=== PATIENT | female | born 1990 | race Caucasian/White ===

== ENCOUNTER 2017-04-19 17:19 | Emergency (ER) | payer MEDICARE, MEDICAID ==
[~2017-04-19] VITALS: Ht 157.5 cm; Wt 54.0 kg
[~2017-04-19 17:19] MED LIST: ALBU8HFA PO; PRED20TA PO
[2017-04-19 17:46] VITALS: BP 140/100
[2017-04-19] MEDS ORDERED: TRAM50TA2 PO (17:58)
[2017-04-19] MEDS ORDERED: CLIN150C2 PO (17:58)
== END 2017-04-19 18:07 | disposition home or self-care (01) ==
LOC: ER 17:19
DX: K08.89 Other specified disorders of teeth and supporting structures (principal); Z88.0 Allergy status to penicillin; Z88.2 Allergy status to sulfonamides
CPT/HCPCS: 99283

== ENCOUNTER 2017-05-09 09:04 | Emergency (ER) | payer MEDICARE, MEDICAID ==
[~2017-05-09] VITALS: Ht 160 cm; Wt 47.0 kg
[~2017-05-09 09:04] MED LIST changes: -ALBU8HFA PO; -PRED20TA PO; +TRAM50TA2 PO
[2017-05-09 09:26] LABS: URINE HCG NEGATIVE (NEG)
[2017-05-09 09:35] LABS: CLARITY,URINE CLOUDY (Clear); COLOR,URINE YELLOW (Yellow); GLUCOSE, URINE >=1000 mg/dl (Neg); KETONES,URINE NEGATIVE (Neg); LEUKOCYTE ESTERASE ,URINE NEGATIVE (Neg); NITRITES, URINE NEGATIVE (Neg); OCCULT BLOOD,URINE MODERATE (Neg); PH,URINE 5.5 (4.8-8.0); PROTEIN,URINE NEGATIVE (Neg); UROBILINOGEN,URINE 0.2 E.U/dL (0.2-1.0)
[2017-05-09 09:37] LABS: UA COLLECTION TYPE CLN CATCH MIDSTREAM
[2017-05-09 09:56] LABS: BACTERIA,URINE NONE SEEN /HPF (Neg); RBC,URINE TNTC /HPF (0-2); SQUAMOUS EPITHELIAL CELL,UR FEW /LPF (FEW); WBC,URINE 0-4 /HPF (0-4)
[2017-05-09] MEDS ORDERED: HYDROcodone/acetaminophen 5mg/325mg tablet PO ONE (10:00)
[2017-05-09] MEDS ORDERED: ketorolac trometh inj. 60 MG/2 ML VIAL IM ONE (10:00)
[2017-05-09] MEDS ORDERED: HYDR-569 PO (10:48)
[2017-05-09] MEDS ORDERED: FLO0.4C PO (10:48)
[2017-05-09] MEDS ORDERED: NAPR-56 PO (10:48)
[2017-05-09] MEDS ORDERED: ONDA4TAB9 SL (10:48)
[2017-05-09] MEDS ORDERED: tamsulosin 0.4mg capsule PO SCH (21:00)
== END 2017-05-09 11:53 | disposition home or self-care (01) ==
LOC: ER 09:04
DX: N23 Unspecified renal colic (principal); R30.0 Dysuria; R31.9 Hematuria, unspecified; Z88.0 Allergy status to penicillin; Z88.2 Allergy status to sulfonamides; Z79.899 Other long term (current) drug therapy
CPT/HCPCS: 74176; 81001; 81025; 96372; 99285; J1885

== ENCOUNTER 2017-05-23 14:00 | Emergency (ER) | payer MEDICARE, MEDICAID ==
[~2017-05-23] VITALS: Ht 160 cm; Wt 54.0 kg
[~2017-05-23 14:00] MED LIST changes: +FLO0.4C PO; +HYDR-569 PO; +NAPR-56 PO; -TRAM50TA2 PO
[2017-05-23 14:25] LABS: CLARITY,URINE CLOUDY (Clear); COLOR,URINE YELLOW (Yellow); GLUCOSE, URINE >=1000 mg/dl (Neg); KETONES,URINE NEGATIVE (Neg); LEUKOCYTE ESTERASE ,URINE NEGATIVE (Neg); NITRITES, URINE NEGATIVE (Neg); OCCULT BLOOD,URINE TRACE-INTACT (Neg); PH,URINE 8.5 (4.8-8.0); PROTEIN,URINE 30 mg/dl (Neg)
[2017-05-23 14:26] LABS: UA COLLECTION TYPE CLN CATCH MIDSTREAM
[2017-05-23 14:33] LABS: URINE HCG NEGATIVE (NEG)
[2017-05-23 14:49] LABS: BACTERIA,URINE 1+ /HPF (Neg); HYALINE CASTS 0-3 /LPF (NEGATIVE); SQUAMOUS EPITHELIAL CELL,UR MANY /LPF (FEW)
[2017-05-23 14:50] LABS: RBC,URINE 0-2 /HPF (0-2)
[2017-05-23 15:44] VITALS: BP 145/80
== END 2017-05-23 15:45 | disposition home or self-care (01) ==
LOC: ER 14:00
DX: R10.31 Right lower quadrant pain (principal); Z88.0 Allergy status to penicillin; Z88.2 Allergy status to sulfonamides; Z88.8 Allergy status to other drugs, medicaments and biological substances; Z79.899 Other long term (current) drug therapy
CPT/HCPCS: 76856; 81001; 81025; 99285

== ENCOUNTER 2017-08-30 21:28 | Emergency (ER) | payer MEDICARE, MEDICAID ==
[~2017-08-30] VITALS: Ht 157.5 cm; Wt 57.2 kg
[~2017-08-30 21:28] MED LIST changes: -FLO0.4C PO; +METH500T PO; -NAPR-56 PO
[2017-08-30 22:54] LABS: BASOPHILS % (AUTO) 0.3 % (0-1); EOSINOPHILS # (AUTO) 0.1 X10'3 (0-0.9); EOSINOPHILS % (AUTO) 1.2 % (0-6); HEMATOCRIT 36.9 % (35.0-45.0); HEMOGLOBIN 12.7 g/dl (12.0-16.0); LYMPHOCYTES # (AUTO) 2.1 X10'3 (1.1-4.8); LYMPHOCYTES % (AUTO) 28.5 % (21-51); MEAN CORPUSCULAR HEMOGLOBIN 30.3 PG (27.0-31.0); MEAN CORPUSCULAR HGB CONC 34.5 % (33.0-36.5); MEAN CORPUSCULAR VOLUME 87.8 FL (78-98); MONOCYTES # (AUTO) 0.3 X10'3 (0-0.9); MONOCYTES % (AUTO) 4.4 % (2-12); NEUTROPHILS # (AUTO) 4.9 X10'3 (1.8-7.7); NEUTROPHILS % (AUTO) 65.6 % (42-75); PLATELET COUNT 366 X10'3 (140-440); RED CELL DISTRIBUTION WIDTH 13.9 % (11.5-14.5); WHITE BLOOD COUNT 7.4 X10'3 (4.5-11.0)
[2017-08-30 23:04] LABS: URINE HCG NEGATIVE (NEG)
[2017-08-30 23:04] LABS: PROTHROMBIN TIME 9.9 SECONDS (9.0-12.0)
[2017-08-30 23:06] LABS: CLARITY,URINE CLEAR (Clear); COLOR,URINE STRAW (Yellow); GLUCOSE, URINE >=1000 mg/dl (Neg); KETONES,URINE NEGATIVE (Neg); LEUKOCYTE ESTERASE ,URINE NEGATIVE (Neg); NITRITES, URINE NEGATIVE (Neg); OCCULT BLOOD,URINE MODERATE (Neg); PH,URINE 6.5 (4.8-8.0); PROTEIN,URINE NEGATIVE (Neg); UROBILINOGEN,URINE 0.2 E.U/dL (0.2-1.0)
[2017-08-30 23:07] LABS: UA COLLECTION TYPE CLN CATCH MIDSTREAM
[2017-08-30 23:09] LABS: ALANINE AMINOTRANSFERASE 45 U/L (12-78); ALBUMIN 3.6 G/DL (3.4-5.0); ALBUMIN/GLOBULIN RATIO 0.8 (1.1-1.5); ALKALINE PHOSPHATASE 101 IU/L (46-116); ANION GAP 11 (8-16); ASPARTATE AMINO TRANSFERASE 162 U/L (10-37); BILIRUBIN,TOTAL 0.3 MG/DL (0.1-1.0); BLOOD UREA NITROGEN 13 MG/DL (7-18); BUN/CREATININE RATIO 11.1 (6.6-38.0); CALCIUM 8.8 MG/DL (8.5-10.1); CHLORIDE 100 MMOL/L (99-107); CREATININE 1.17 MG/DL (0.40-0.90); GLUCOSE 440 MG/DL (70-104); POTASSIUM 3.5 MMOL/L (3.5-5.1); SODIUM 136 MMOL/L (135-145); TOTAL CARBON DIOXIDE 25.3 MMOL/L (24-32); eGFR 55 ML/MIN
[2017-08-30 23:16] LABS: BACTERIA,URINE FEW /HPF (Neg); SQUAMOUS EPITHELIAL CELL,UR FEW /LPF (FEW); WBC,URINE NONE SEEN /HPF (0-4)
[2017-08-31] MEDS ORDERED: famotidine/PF 10 mg/ml inj IV ONE (00:35)
[2017-08-31] MEDS ORDERED: ondansetron/PF 4mg/2ml inj IV ONE (00:35)
[2017-08-31] MEDS ORDERED: morphine 4 MG/ML inj SYRINge IV ONE ×2 (00:35→02:05)
[2017-08-31] MEDS ORDERED: normal saline 1000ML IV soln IVB ONE ×2 (00:35)
[2017-08-31] MEDS ORDERED: proCHLORperazine 10 MG/2 ml inj IV ONE (02:05)
[2017-08-31 02:27] VITALS: BP 131/91
[2017-08-31] MEDS ORDERED: HYDR-3965 PO (03:04)
[2017-08-31] MEDS ORDERED: ONDA8TAB9 PO (03:04)
[2017-08-31] MEDS ORDERED: pantoprazole 40mg Tablet.DR PO ONE (03:20)
== END 2017-08-31 03:30 | disposition home or self-care (01) ==
LOC: ER 21:28
DX: R10.11 Right upper quadrant pain (principal); R11.2 Nausea with vomiting, unspecified; E11.42 Type 2 diabetes mellitus with diabetic polyneuropathy; Z98.890 Other specified postprocedural states; Z88.0 Allergy status to penicillin; Z88.2 Allergy status to sulfonamides; Z88.1 Allergy status to other antibiotic agents; Z88.8 Allergy status to other drugs, medicaments and biological substances; Z79.899 Other long term (current) drug therapy
CPT/HCPCS: 36415; 71046; 80053; 81001; 81025; 82948; 85025; 85610; 96361; 96374; 96375; 96376; 99285; J0780; J2270; J2405; J3490; J7030

== ENCOUNTER 2017-09-30 13:05 | Emergency (ER) | payer MEDICARE, MEDICAID ==
[~2017-09-30] VITALS: Ht 160 cm; Wt 56.8 kg
[~2017-09-30 13:05] MED LIST changes: +HYDR-3965 PO; +ONDA4TAB9 PO; +ONDA8TAB9 PO
[2017-09-30] MEDS ORDERED: ondansetron 4mg rapidly disintigrating tab PO ONE (14:30)
[2017-09-30] MEDS ORDERED: normal saline 1000ML IV soln IVB ONE (14:30)
[2017-09-30 14:55] LABS: BASOPHILS % (AUTO) 0.2 % (0-1); EOSINOPHILS # (AUTO) 0.2 X10'3 (0-0.9); EOSINOPHILS % (AUTO) 1.9 % (0-6); HEMATOCRIT 35.1 % (35.0-45.0); LYMPHOCYTES # (AUTO) 0.9 X10'3 (1.1-4.8); LYMPHOCYTES % (AUTO) 9.1 % (21-51); MEAN CORPUSCULAR HGB CONC 34.3 % (33.0-36.5); MEAN CORPUSCULAR VOLUME 87.6 FL (78-98); MEAN PLATELET VOLUME 6.9 FL (7.4-10.4); MONOCYTES # (AUTO) 0.3 X10'3 (0-0.9); MONOCYTES % (AUTO) 2.7 % (2-12); NEUTROPHILS # (AUTO) 8.5 X10'3 (1.8-7.7); NEUTROPHILS % (AUTO) 86.1 % (42-75); PLATELET COUNT 359 X10'3 (140-440); RED CELL DISTRIBUTION WIDTH 14.7 % (11.5-14.5); WHITE BLOOD COUNT 9.9 X10'3 (4.5-11.0)
[2017-09-30] MEDS ORDERED: proCHLORperazine 10 MG/2 ml inj IV ONE (15:10)
[2017-09-30] MEDS ORDERED: dexamethasone 4mg/ml inj IV ONE (15:10)
[2017-09-30 15:12] LABS: PROTHROMBIN TIME 10.2 SECONDS (9.0-12.0)
[2017-09-30 15:19] LABS: HCG SERUM QL NEGATIVE
[2017-09-30 15:34] LABS: ALANINE AMINOTRANSFERASE 22 U/L (12-78); ALBUMIN 3.7 G/DL (3.4-5.0); ALBUMIN/GLOBULIN RATIO 0.8 (1.1-1.5); ALKALINE PHOSPHATASE 95 IU/L (46-116); ANION GAP 8 (8-16); ASPARTATE AMINO TRANSFERASE 18 U/L (10-37); BILIRUBIN,TOTAL 0.5 MG/DL (0.1-1.0); BLOOD UREA NITROGEN 14 MG/DL (7-18); BUN/CREATININE RATIO 11.5 (6.6-38.0); CALCIUM 8.9 MG/DL (8.5-10.1); CHLORIDE 102 MMOL/L (99-107); CREATININE 1.22 MG/DL (0.40-0.90); GLUCOSE 73 MG/DL (70-104); LIPASE 136 U/L (73-393); POTASSIUM 4.1 MMOL/L (3.5-5.1); SODIUM 142 MMOL/L (135-145); TOTAL CARBON DIOXIDE 32.1 MMOL/L (24-32); TOTAL PROTEIN 8.1 G/DL (6.4-8.2); eGFR 52 ML/MIN
[2017-09-30 15:58] VITALS: BP 127/80
== END 2017-09-30 16:43 | disposition home or self-care (01) ==
LOC: ER 13:05
DX: R11.2 Nausea with vomiting, unspecified (principal); E10.9 Type 1 diabetes mellitus without complications; E10.42 Type 1 diabetes mellitus with diabetic polyneuropathy; Z98.890 Other specified postprocedural states; Z88.0 Allergy status to penicillin; Z88.1 Allergy status to other antibiotic agents; Z88.2 Allergy status to sulfonamides; Z88.8 Allergy status to other drugs, medicaments and biological substances; Z79.899 Other long term (current) drug therapy
CPT/HCPCS: 36415; 80053; 82948; 83690; 84703; 85025; 85610; 96361; 96374; 96375; 99285; J0780; J1100; J7030

== ENCOUNTER 2017-10-06 21:47 | Inpatient (IN) | payer MEDICARE, MEDICAID ==
[~2017-10-06] VITALS: Ht 157.5 cm; Wt 59.0 kg
[~2017-10-06 21:47] MED LIST changes: -HYDR-3965 PO
[2017-10-06] MEDS ORDERED: normal saline 1000ML IV soln IVB ONE (22:05)
[2017-10-06] MEDS ORDERED: ondansetron/PF 4mg/2ml inj IV ONE (22:05)
[2017-10-06 22:38] LABS: BASOPHILS % (AUTO) 0.2 % (0-1); EOSINOPHILS # (AUTO) 0.1 X10'3 (0-0.9); EOSINOPHILS % (AUTO) 1.7 % (0-6); HEMOGLOBIN 10.9 g/dl (12.0-16.0); LYMPHOCYTES # (AUTO) 1.9 X10'3 (1.1-4.8); LYMPHOCYTES % (AUTO) 24.9 % (21-51); MEAN CORPUSCULAR HEMOGLOBIN 30.3 PG (27.0-31.0); MEAN CORPUSCULAR HGB CONC 34.1 % (33.0-36.5); MEAN CORPUSCULAR VOLUME 88.9 FL (78-98); MEAN PLATELET VOLUME 7.3 FL (7.4-10.4); MONOCYTES # (AUTO) 0.2 X10'3 (0-0.9); MONOCYTES % (AUTO) 3.1 % (2-12); NEUTROPHILS # (AUTO) 5.4 X10'3 (1.8-7.7); NEUTROPHILS % (AUTO) 70.1 % (42-75); PLATELET COUNT 352 X10'3 (140-440); RED CELL DISTRIBUTION WIDTH 14.5 % (11.5-14.5); WHITE BLOOD COUNT 7.7 X10'3 (4.5-11.0)
[2017-10-06 22:48] LABS: HCG SERUM QL NEGATIVE
[2017-10-06 22:50] LABS: PARTIAL THROMBOPLASTIN TIME 26 SECONDS (22-32); PROTHROMBIN TIME 10.2 SECONDS (9.0-12.0)
[2017-10-06 23:05] LABS: ALANINE AMINOTRANSFERASE 24 U/L (12-78); ALBUMIN 3.3 G/DL (3.4-5.0); ALBUMIN/GLOBULIN RATIO 0.9 (1.1-1.5); ALKALINE PHOSPHATASE 97 IU/L (46-116); ANION GAP 15 (8-16); ASPARTATE AMINO TRANSFERASE 18 U/L (10-37); BILIRUBIN,TOTAL 0.2 MG/DL (0.1-1.0); BLOOD UREA NITROGEN 12 MG/DL (7-18); BUN/CREATININE RATIO 9.8 (6.6-38.0); CALCIUM 8.2 MG/DL (8.5-10.1); CHLORIDE 102 MMOL/L (99-107); CREATINE KINASE 66 U/L (26-192); CREATININE 1.23 MG/DL (0.40-0.90); MAGNESIUM 2.2 MG/DL (1.5-2.4); PHOSPHORUS 3.1 MG/DL (2.3-4.5); POTASSIUM 3.4 MMOL/L (3.5-5.1); SODIUM 139 MMOL/L (135-145); TOTAL CARBON DIOXIDE 22.4 MMOL/L (24-32); TOTAL PROTEIN 7.1 G/DL (6.4-8.2); eGFR 52 ML/MIN
[2017-10-06 23:06] LABS: ACETAMINOPHEN < 2.0 UG/ML (10-30)
[2017-10-06 23:09] LABS: GLUCOSE 457 MG/DL (70-104)
[2017-10-06 23:16] LABS: ABG BASE EXCESS -6.8 mmol/L (-2.0-3.0); ABG HCO3 19.1 mmol/L (22.0-26.0); ABG OXYGEN SATURATION 96.2 % (95-98); ABG PCO2 (T) 38.9 mmHg (32.0-45.0); ABG PH (T) 7.307 (7.350-7.450); ABG PO2 (T) 97.4 mmHg (83-108); ALLEN'S TEST Positive; FCOHb 0.2 % (0.5-1.5); FMetHb 0.2 % (0.3-1.12); FO2Hb 95.8 % (94-100); PATIENT TEMPERATURE 36.4; RESPIRATORY RATE (OBSERVED) 20 b/min; TOTAL HEMOGLOBIN 11.5 G/dl (12.0-16.0)
[2017-10-06] MEDS ORDERED: normal saline 1000ml 1,000 ML IV ONE (23:20)
[2017-10-06] MEDS ORDERED: dextrose 50%-water 50ml dispensing syringe IV PRN (23:25)
[2017-10-06] MEDS ORDERED: haloperidol lactate 5mg/ml inj IM ONE (23:55)
[2017-10-07 00:09] LABS: CLARITY,URINE CLEAR (Clear); COLOR,URINE STRAW (Yellow); GLUCOSE, URINE >=1000 mg/dl (Neg); KETONES,URINE NEGATIVE (Neg); LEUKOCYTE ESTERASE ,URINE NEGATIVE (Neg); NITRITES, URINE NEGATIVE (Neg); OCCULT BLOOD,URINE MODERATE (Neg); PH,URINE 6.5 (4.8-8.0); PROTEIN,URINE NEGATIVE (Neg); UROBILINOGEN,URINE 0.2 E.U/dL (0.2-1.0)
[2017-10-07 00:12] LABS: UA COLLECTION TYPE FOLEY CATH; URINE AMPHETAMINE SCREEN NEGATIVE (Neg); URINE BARBITUATE SCREEN NEGATIVE (Neg); URINE BENZODIAZEPINES SCREEN NEGATIVE (Neg); URINE CANNABINOID SCREEN NEGATIVE (Neg); URINE COCAINE SCREEN NEGATIVE (Neg); URINE METHADONE SCREEN NEGATIVE (Neg); URINE OPIATE SCREEN NEGATIVE (Neg); URINE PHENCYCLIDINE SCREEN NEGATIVE (Neg)
[2017-10-07] MEDS: insulin regular, human 100 UNIT in normal saline 100ml IV soln 99 ML IV SCH ×6 (00:14→04:52)
[2017-10-07 00:20] LABS: BACTERIA,URINE NONE SEEN /HPF (Neg); MUCUS STRANDS NONE SEEN /LPF (Neg); WBC,URINE 0-4 /HPF (0-4)
[2017-10-07 00:21] LABS: SQUAMOUS EPITHELIAL CELL,UR NONE SEEN /LPF (FEW); TRANSITIONAL EPI CELLS,URINE FEW /HPF
[2017-10-07] MEDS ORDERED: magnesium hydroxide 30ml (MOM) UD suspension PO PRN (01:45)
[2017-10-07] MEDS ORDERED: acetaminophen 325mg tablet PO PRN (01:45)
[2017-10-07] MEDS ORDERED: ondansetron/PF 4mg/2ml inj IV PRN (01:45)
[2017-10-07] MEDS ORDERED: mag hydrox/Alum hydrox/simeth 30ml oral suspension PO PRN ×2 (01:45→09:20)
[2017-10-07] MEDS ORDERED: dextrose 50%-water 50ml dispensing syringe IV PRN ×3 (01:55→09:05)
[2017-10-07] MEDS ORDERED: insulin regular, human 100 UNIT in normal saline 100ml IV soln 99 ML IV SCH ×2 (01:55)
[2017-10-07] MEDS: normal saline 1000ml 1,000 ML IV SCH ×2 (02:43→11:10)
[2017-10-07 03:00] VITALS: BP 95/54
[2017-10-07 06:57] VITALS: BP 105/64
[2017-10-07 07:55] LABS: BASOPHILS % (AUTO) 0.5 % (0-1); EOSINOPHILS # (AUTO) 0.1 X10'3 (0-0.9); EOSINOPHILS % (AUTO) 1.5 % (0-6); HEMATOCRIT 28.1 % (35.0-45.0); HEMOGLOBIN 9.3 g/dl (12.0-16.0); LYMPHOCYTES # (AUTO) 1.7 X10'3 (1.1-4.8); LYMPHOCYTES % (AUTO) 33.7 % (21-51); MEAN CORPUSCULAR HEMOGLOBIN 29.8 PG (27.0-31.0); MEAN CORPUSCULAR HGB CONC 33.1 % (33.0-36.5); MEAN PLATELET VOLUME 7.1 FL (7.4-10.4); MONOCYTES # (AUTO) 0.5 X10'3 (0-0.9); NEUTROPHILS # (AUTO) 2.7 X10'3 (1.8-7.7); NEUTROPHILS % (AUTO) 54.3 % (42-75); PLATELET COUNT 297 X10'3 (140-440); RED BLOOD COUNT 3.12 X10'6 (4.20-5.60); RED CELL DISTRIBUTION WIDTH 14.5 % (11.5-14.5)
[2017-10-07] MEDS ORDERED: heparin, porcine 5000 units/ml vial SQ SCH (08:00)
[2017-10-07 08:38] LABS: ALANINE AMINOTRANSFERASE 15 U/L (12-78); ALBUMIN 2.5 G/DL (3.4-5.0); ALBUMIN/GLOBULIN RATIO 0.8 (1.1-1.5); ALKALINE PHOSPHATASE 82 IU/L (46-116); ANION GAP 10 (8-16); ASPARTATE AMINO TRANSFERASE 24 U/L (10-37); BILIRUBIN,TOTAL 0.1 MG/DL (0.1-1.0); BLOOD UREA NITROGEN 10 MG/DL (7-18); BUN/CREATININE RATIO 11.2 (6.6-38.0); CALCIUM 7.4 MG/DL (8.5-10.1); CREATININE 0.89 MG/DL (0.40-0.90); GLUCOSE 86 MG/DL (70-104); MAGNESIUM 1.9 MG/DL (1.5-2.4); POTASSIUM 3.8 MMOL/L (3.5-5.1); SODIUM 148 MMOL/L (135-145); TOTAL CARBON DIOXIDE 22.6 MMOL/L (24-32); TOTAL PROTEIN 5.7 G/DL (6.4-8.2); eGFR 76 ML/MIN
[2017-10-07 08:47] LABS: CHLORIDE 114 MMOL/L (99-107)
[2017-10-07] MEDS ORDERED: HYDROcodone/acetaminophen 5mg/325mg tablet PO PRN (09:05)
[2017-10-07] MEDS ORDERED: morphine 4 MG/ML inj SYRINge IV PRN (09:05)
[2017-10-07] MEDS ORDERED: insulin Lispro (HumaLOG) vial - multi-dose SQ SCH (09:05)
[2017-10-07] MEDS ORDERED: MESSAGE TO PHARMACY PO ONE (09:05)
[2017-10-07] MEDS ORDERED: dextrose ORAL solution 15 GM/59 ML bottle PO PRN ×2 (09:05)
[2017-10-07] MEDS ORDERED: glucagon, human recombinant 1mg kit SUBCUT PRN (09:05)
[2017-10-07] MEDS ORDERED: normal saline 500ml IV soln 500 ML IV ONE (09:15)
[2017-10-07] MEDS ORDERED: pantoprazole 40 MG vial IV SCH (09:20)
[2017-10-07] MEDS ORDERED: cyclobenzaprine 10mg tablet PO PRN (09:20)
[2017-10-07] MEDS ORDERED: thiamine inj. 100 MG in normal saline 100ml IV soln 100 ML IV ONE (09:20)
[2017-10-07] MEDS ORDERED: dicyclomine 10 MG capsule PO PRN (09:20)
[2017-10-07] MEDS ORDERED: loperamide 2mg capsule PO ONE (09:20)
[2017-10-07 09:22] LABS: HEMOGLOBIN A1C 9.7 % (4.5-6.2)
[2017-10-07 11:23] VITALS: BP 146/93
[2017-10-07] MEDS ORDERED: MULT-38 PO (12:36)
[2017-10-07] MEDS ORDERED: insulin glargine (Lantus) pen - multi-dose SQ SCH (21:00)
[2017-10-08] MEDS ORDERED: folic acid inj. 2 MG, thiamine inj. 100 MG, MVI, adult No.4 with vit. K 10 ML in dextro... IV SCH ×4 (08:00)
== END 2017-10-07 13:30 | disposition home or self-care (01) | DRG 917 ==
LOC: ER 21:48 → EDBEDREQTM 10-07 01:16 → ED HOLD 10-07 01:45 → EDBEDREQ 10-07 02:05 → PCU 3S 10-07 03:25
PROVIDERS: ADMIT Internal Medicine; ATTEND Family Medicine
DX: T51.91XA Toxic effect of unspecified alcohol, accidental (unintentional), initial encounter (principal); E10.10 Type 1 diabetes mellitus with ketoacidosis without coma; E10.42 Type 1 diabetes mellitus with diabetic polyneuropathy; F10.129 Alcohol abuse with intoxication, unspecified; E86.0 Dehydration; Y90.8 Blood alcohol level of 240 mg/100 ml or more; R32 Unspecified urinary incontinence; Z88.0 Allergy status to penicillin; Z88.1 Allergy status to other antibiotic agents; Z88.8 Allergy status to other drugs, medicaments and biological substances; Z90.49 Acquired absence of other specified parts of digestive tract; Z79.4 Long term (current) use of insulin; Y92.89 Other specified places as the place of occurrence of the external cause
CPT/HCPCS: 36415; 36600; 71045; 80053; 80305; 80320; 80329; 81001; 81003; 82140; 82550; 82803; 82948; 83036; 83735; 84100; 84443; 84703; 85018; 85025; 85610; 85730; 87070; 93005; 96361; 96365; 96372; 99285; C9113; J1630; J1644; J1815; J2270; J2405; J3411; J3490; J7030; J7060

== ENCOUNTER 2017-10-19 07:34 | Emergency (ER) | payer MEDICARE, MEDICAID ==
[~2017-10-19] VITALS: Ht 157.5 cm; Wt 59.0 kg
[~2017-10-19 07:34] MED LIST changes: +MULT-38 PO
[2017-10-19 07:39] VITALS: BP 146/87
[2017-10-19] MEDS ORDERED: ketorolac trometh inj. 60 MG/2 ML VIAL IM ONE (08:00)
[2017-10-19] MEDS ORDERED: acetaminophen 325mg tablet PO ONE (08:00)
[2017-10-19 08:06] LABS: URINE HCG NEGATIVE (NEG)
[2017-10-19 08:09] LABS: CLARITY,URINE CLOUDY (Clear); COLOR,URINE YELLOW (Yellow); GLUCOSE, URINE NEGATIVE (Neg); KETONES,URINE NEGATIVE (Neg); LEUKOCYTE ESTERASE ,URINE MODERATE (Neg); NITRITES, URINE NEGATIVE (Neg); OCCULT BLOOD,URINE SMALL (Neg); PROTEIN,URINE 100 mg/dl (Neg)
[2017-10-19 08:14] LABS: UA COLLECTION TYPE CLN CATCH MIDSTREAM
[2017-10-19 08:17] LABS: SQUAMOUS EPITHELIAL CELL,UR MANY /LPF (FEW); WBC,URINE TNTC /HPF (0-4)
[2017-10-19 08:18] LABS: BACTERIA,URINE 2+ /HPF (Neg)
[2017-10-19] MEDS ORDERED: ciprofloxacin 250mg tablet PO ONE (08:40)
[2017-10-19] MEDS ORDERED: CIPR-259 PO (08:42)
== END 2017-10-19 09:14 | disposition home or self-care (01) ==
LOC: ER 07:35
DX: N39.0 Urinary tract infection, site not specified (principal); R07.81 Pleurodynia; E11.40 Type 2 diabetes mellitus with diabetic neuropathy, unspecified; Z88.1 Allergy status to other antibiotic agents; Z88.0 Allergy status to penicillin; Z88.2 Allergy status to sulfonamides; Z88.8 Allergy status to other drugs, medicaments and biological substances
CPT/HCPCS: 81001; 81025; 96372; 99284; J1885

== ENCOUNTER 2017-10-21 12:08 | Emergency (ER) | payer MEDICARE, MEDICAID ==
[~2017-10-21] VITALS: Ht 157.5 cm; Wt 57.2 kg
[~2017-10-21 12:08] MED LIST changes: +CIPR-259 PO
[2017-10-21 12:39] LABS: BASOPHILS % (AUTO) 0.3 % (0-1); EOSINOPHILS # (AUTO) 0.1 X10'3 (0-0.9); EOSINOPHILS % (AUTO) 1.5 % (0-6); HEMATOCRIT 36.1 % (35.0-45.0); HEMOGLOBIN 12.1 g/dl (12.0-16.0); LYMPHOCYTES % (AUTO) 14.3 % (21-51); MEAN CORPUSCULAR HEMOGLOBIN 29.3 PG (27.0-31.0); MEAN CORPUSCULAR HGB CONC 33.5 % (33.0-36.5); MEAN CORPUSCULAR VOLUME 87.3 FL (78-98); MEAN PLATELET VOLUME 6.8 FL (7.4-10.4); MONOCYTES # (AUTO) 0.2 X10'3 (0-0.9); MONOCYTES % (AUTO) 2.3 % (2-12); NEUTROPHILS # (AUTO) 5.8 X10'3 (1.8-7.7); NEUTROPHILS % (AUTO) 81.6 % (42-75); PLATELET COUNT 493 X10'3 (140-440); RED BLOOD COUNT 4.14 X10'6 (4.20-5.60); RED CELL DISTRIBUTION WIDTH 13.8 % (11.5-14.5); WHITE BLOOD COUNT 7.1 X10'3 (4.5-11.0)
[2017-10-21] MEDS ORDERED: gentamicin inj 250 MG in normal saline 100ml IV soln 100 ML IV STA (12:41)
[2017-10-21] MEDS ORDERED: diphenhydrAMINE 50 mg/ml inj IV ONE (12:45)
[2017-10-21] MEDS ORDERED: normal saline 1000ML IV soln IVB ONE ×2 (12:45)
[2017-10-21] MEDS ORDERED: LORazepam 2 mg/ml vial IV ONE (12:45)
[2017-10-21] MEDS ORDERED: metoclopramide 5 mg/ml inj IV ONE (12:45)
[2017-10-21 12:47] LABS: PROTHROMBIN TIME 10.4 SECONDS (9.0-12.0)
[2017-10-21 12:53] LABS: ALANINE AMINOTRANSFERASE 28 U/L (12-78); ALBUMIN 3.6 G/DL (3.4-5.0); ALBUMIN/GLOBULIN RATIO 0.8 (1.1-1.5); ALKALINE PHOSPHATASE 139 IU/L (46-116); AMYLASE 63 U/L (25-115); ANION GAP 9 (8-16); ASPARTATE AMINO TRANSFERASE 26 U/L (10-37); BILIRUBIN,TOTAL 0.4 MG/DL (0.1-1.0); BLOOD UREA NITROGEN 16 MG/DL (7-18); BUN/CREATININE RATIO 12.2 (6.6-38.0); CALCIUM 9.3 MG/DL (8.5-10.1); CHLORIDE 101 MMOL/L (99-107); CREATININE 1.31 MG/DL (0.40-0.90); GLUCOSE 161 MG/DL (70-104); LIPASE 122 U/L (73-393); POTASSIUM 4.5 MMOL/L (3.5-5.1); SODIUM 139 MMOL/L (135-145); TOTAL CARBON DIOXIDE 28.9 MMOL/L (24-32); TOTAL PROTEIN 8.2 G/DL (6.4-8.2); eGFR 48 ML/MIN
[2017-10-21] MEDS ORDERED: METO10TA3 PO (14:37)
[2017-10-21] MEDS ORDERED: morphine 4 MG/ML inj SYRINge IV ONE (14:40)
[2017-10-21 14:58] LABS: URINE HCG NEGATIVE (NEG)
[2017-10-21 15:11] LABS: CLARITY,URINE SLIGHTLY CLOUDY (Clear); COLOR,URINE YELLOW (Yellow); GLUCOSE, URINE NEGATIVE (Neg); KETONES,URINE NEGATIVE (Neg); LEUKOCYTE ESTERASE ,URINE NEGATIVE (Neg); NITRITES, URINE NEGATIVE (Neg); OCCULT BLOOD,URINE MODERATE (Neg); PH,URINE 8.5 (4.8-8.0); PROTEIN,URINE 100 mg/dl (Neg); UROBILINOGEN,URINE 0.2 E.U/dL (0.2-1.0)
[2017-10-21 15:36] LABS: UA COLLECTION TYPE CLN CATCH MIDSTREAM
[2017-10-21 15:37] LABS: SQUAMOUS EPITHELIAL CELL,UR MODERATE /LPF (FEW); WBC,URINE 0-4 /HPF (0-4)
[2017-10-21 15:38] LABS: BACTERIA,URINE 1+ /HPF (Neg); RBC,URINE 20-50 /HPF (0-2)
[2017-10-21 16:14] VITALS: BP 142/96
== END 2017-10-21 16:16 | disposition home or self-care (01) ==
LOC: ER 12:09
DX: R10.10 Upper abdominal pain, unspecified (principal); R11.2 Nausea with vomiting, unspecified; E10.42 Type 1 diabetes mellitus with diabetic polyneuropathy; Z98.890 Other specified postprocedural states; Z88.0 Allergy status to penicillin; Z88.1 Allergy status to other antibiotic agents; Z88.8 Allergy status to other drugs, medicaments and biological substances; Z88.2 Allergy status to sulfonamides; Z79.2 Long term (current) use of antibiotics; Z79.899 Other long term (current) drug therapy
CPT/HCPCS: 36415; 80053; 81001; 81025; 82150; 82948; 83690; 85025; 85610; 96365; 96366; 96375; 99284; J1200; J1580; J2060; J2270; J2765; J7030

== ENCOUNTER 2017-10-29 16:11 | Emergency (ER) | payer MEDICARE, MEDICAID ==
[~2017-10-29] VITALS: Ht 157.5 cm; Wt 57.2 kg
[~2017-10-29 16:11] MED LIST changes: +METO10TA3 PO; -ONDA4TAB9 PO
[2017-10-29] MEDS ORDERED: normal saline 1000ML IV soln IVB ONE (16:25)
[2017-10-29] MEDS ORDERED: LIDOcaine Viscous 15ml cup MM PRN (16:35)
[2017-10-29] MEDS ORDERED: metoclopramide 5 mg/ml inj IV ONE (16:35)
[2017-10-29] MEDS ORDERED: mag hydrox/Alum hydrox/simeth 30ml oral suspension PO ONE (16:35)
[2017-10-29] MEDS ORDERED: diphenhydrAMINE 50 mg/ml inj IV ONE (16:35)
[2017-10-29] MEDS ORDERED: ketorolac trometh. 30mg/ml inj. IV ONE (16:35)
[2017-10-29] MEDS ORDERED: LORazepam 2 mg/ml vial IV ONE (16:35)
[2017-10-29 16:40] LABS: BASOPHILS % (AUTO) 0.7 % (0-1); EOSINOPHILS # (AUTO) 0.1 X10'3 (0-0.9); EOSINOPHILS % (AUTO) 1.1 % (0-6); HEMOGLOBIN 12.3 g/dl (12.0-16.0); LYMPHOCYTES # (AUTO) 1.6 X10'3 (1.1-4.8); LYMPHOCYTES % (AUTO) 22.6 % (21-51); MEAN CORPUSCULAR HGB CONC 34.3 % (33.0-36.5); MEAN CORPUSCULAR VOLUME 87.5 FL (78-98); MEAN PLATELET VOLUME 6.9 FL (7.4-10.4); MONOCYTES # (AUTO) 0.3 X10'3 (0-0.9); MONOCYTES % (AUTO) 3.6 % (2-12); NEUTROPHILS # (AUTO) 5.2 X10'3 (1.8-7.7); PLATELET COUNT 482 X10'3 (140-440); RED BLOOD COUNT 4.11 X10'6 (4.20-5.60); RED CELL DISTRIBUTION WIDTH 14.1 % (11.5-14.5); WHITE BLOOD COUNT 7.2 X10'3 (4.5-11.0)
[2017-10-29 16:55] LABS: ALANINE AMINOTRANSFERASE 27 U/L (12-78); ALBUMIN 3.7 G/DL (3.4-5.0); ALBUMIN/GLOBULIN RATIO 0.8 (1.1-1.5); ALKALINE PHOSPHATASE 132 IU/L (46-116); ANION GAP 13 (8-16); ASPARTATE AMINO TRANSFERASE 25 U/L (10-37); BILIRUBIN,TOTAL 0.5 MG/DL (0.1-1.0); BLOOD UREA NITROGEN 14 MG/DL (7-18); BUN/CREATININE RATIO 10.4 (6.6-38.0); CALCIUM 9.2 MG/DL (8.5-10.1); CHLORIDE 101 MMOL/L (99-107); CREATININE 1.34 MG/DL (0.40-0.90); GLUCOSE 172 MG/DL (70-104); LIPASE 129 U/L (73-393); POTASSIUM 4.4 MMOL/L (3.5-5.1); SODIUM 142 MMOL/L (135-145); TOTAL CARBON DIOXIDE 28.1 MMOL/L (24-32); TOTAL PROTEIN 8.1 G/DL (6.4-8.2); eGFR 47 ML/MIN
[2017-10-29 17:27] LABS: CLARITY,URINE SLIGHTLY CLOUDY (Clear); COLOR,URINE YELLOW (Yellow); GLUCOSE, URINE 100 mg/dl (Neg); KETONES,URINE NEGATIVE (Neg); LEUKOCYTE ESTERASE ,URINE NEGATIVE (Neg); NITRITES, URINE NEGATIVE (Neg); OCCULT BLOOD,URINE SMALL (Neg); PH,URINE 8.5 (4.8-8.0); PROTEIN,URINE 100 mg/dl (Neg); UROBILINOGEN,URINE 0.2 E.U/dL (0.2-1.0)
[2017-10-29 17:28] LABS: URINE HCG NEGATIVE (NEG)
[2017-10-29 17:33] LABS: UA COLLECTION TYPE CLN CATCH MIDSTREAM
[2017-10-29 17:35] LABS: BACTERIA,URINE 1+ /HPF (Neg); MUCUS STRANDS FEW /LPF (Neg); SQUAMOUS EPITHELIAL CELL,UR MANY /LPF (FEW); WBC,URINE 0-4 /HPF (0-4)
[2017-10-29 17:38] LABS: URINE AMPHETAMINE SCREEN NEGATIVE (Neg); URINE BARBITUATE SCREEN NEGATIVE (Neg); URINE BENZODIAZEPINES SCREEN NEGATIVE (Neg); URINE CANNABINOID SCREEN NEGATIVE (Neg); URINE COCAINE SCREEN NEGATIVE (Neg); URINE METHADONE SCREEN NEGATIVE (Neg); URINE OPIATE SCREEN NEGATIVE (Neg); URINE PHENCYCLIDINE SCREEN NEGATIVE (Neg)
[2017-10-29 18:48] VITALS: BP 155/98
== END 2017-10-29 18:51 | disposition home or self-care (01) ==
LOC: ER 16:12
DX: R11.2 Nausea with vomiting, unspecified (principal); R10.9 Unspecified abdominal pain; M54.5 Low back pain; E11.40 Type 2 diabetes mellitus with diabetic neuropathy, unspecified; Z90.49 Acquired absence of other specified parts of digestive tract; Z88.1 Allergy status to other antibiotic agents; Z88.0 Allergy status to penicillin; Z88.2 Allergy status to sulfonamides; Z88.8 Allergy status to other drugs, medicaments and biological substances
CPT/HCPCS: 36415; 80053; 80305; 81001; 81025; 82948; 83690; 85025; 96361; 96374; 96375; 99285; J1200; J1885; J2060; J2765; J7030; 99284

== ENCOUNTER 2017-11-04 07:59 | Emergency (ER) | payer MEDICARE, MEDICAID ==
[~2017-11-04] VITALS: Ht 157.5 cm; Wt 63.0 kg
[2017-11-04] MEDS ORDERED: normal saline 1000ML IV soln IVB ONE (08:20)
[2017-11-04] MEDS ORDERED: metoclopramide 5 mg/ml inj IV ONE (08:25)
[2017-11-04 08:38] LABS: BASOPHILS % (AUTO) 0.5 % (0-1); EOSINOPHILS # (AUTO) 0.1 X10'3 (0-0.9); EOSINOPHILS % (AUTO) 1.1 % (0-6); HEMATOCRIT 35.4 % (35.0-45.0); HEMOGLOBIN 11.9 g/dl (12.0-16.0); LYMPHOCYTES # (AUTO) 0.9 X10'3 (1.1-4.8); LYMPHOCYTES % (AUTO) 9.3 % (21-51); MEAN CORPUSCULAR HEMOGLOBIN 29.6 PG (27.0-31.0); MEAN CORPUSCULAR HGB CONC 33.6 % (33.0-36.5); MEAN CORPUSCULAR VOLUME 88.2 FL (78-98); MEAN PLATELET VOLUME 7.7 FL (7.4-10.4); MONOCYTES # (AUTO) 0.2 X10'3 (0-0.9); MONOCYTES % (AUTO) 2.1 % (2-12); NEUTROPHILS # (AUTO) 8.1 X10'3 (1.8-7.7); PLATELET COUNT 355 X10'3 (140-440); RED BLOOD COUNT 4.01 X10'6 (4.20-5.60); RED CELL DISTRIBUTION WIDTH 13.7 % (11.5-14.5); WHITE BLOOD COUNT 9.3 X10'3 (4.5-11.0)
[2017-11-04 08:52] LABS: ALANINE AMINOTRANSFERASE 30 U/L (12-78); ALBUMIN 4.1 G/DL (3.4-5.0); ALBUMIN/GLOBULIN RATIO 0.9 (1.1-1.5); ALKALINE PHOSPHATASE 129 IU/L (46-116); ANION GAP 18 (8-16); ASPARTATE AMINO TRANSFERASE 18 U/L (10-37); BILIRUBIN,TOTAL 0.4 MG/DL (0.1-1.0); BLOOD UREA NITROGEN 23 MG/DL (7-18); BUN/CREATININE RATIO 12.5 (6.6-38.0); CALCIUM 9.9 MG/DL (8.5-10.1); CHLORIDE 94 MMOL/L (99-107); CREATININE 1.84 MG/DL (0.40-0.90); LIPASE 326 U/L (73-393); MAGNESIUM 2.2 MG/DL (1.5-2.4); PHOSPHORUS 3.8 MG/DL (2.3-4.5); POTASSIUM 4.1 MMOL/L (3.5-5.1); SODIUM 135 MMOL/L (135-145); TOTAL CARBON DIOXIDE 22.9 MMOL/L (24-32); TOTAL PROTEIN 8.6 G/DL (6.4-8.2); eGFR 33 ML/MIN
[2017-11-04 08:55] LABS: ABG BASE EXCESS -4.3 mmol/L (-2.0-3.0); ABG HCO3 20.8 mmol/L (22.0-26.0); ABG OXYGEN SATURATION 95.8 % (95-98); ABG PCO2 (T) 38.6 mmHg (32.0-45.0); ABG PH (T) 7.351 (7.350-7.450); ABG PO2 (T) 88.5 mmHg (83-108); FCOHb 0.2 % (0.5-1.5); FMetHb 0.3 % (0.3-1.12); FO2Hb 95.3 % (94-100); PATIENT TEMPERATURE 37.1; TOTAL HEMOGLOBIN 10.9 G/dl (12.0-16.0)
[2017-11-04] MEDS ORDERED: morphine 4 MG/ML inj SYRINge IM ONE ×3 (08:55→11:50)
[2017-11-04 08:57] LABS: GLUCOSE 642 MG/DL (70-104)
[2017-11-04 09:19] LABS: CLARITY,URINE CLEAR (Clear); GLUCOSE, URINE >=1000 mg/dl (Neg); KETONES,URINE 15 mg/dl (Neg); LEUKOCYTE ESTERASE ,URINE NEGATIVE (Neg); NITRITES, URINE NEGATIVE (Neg); OCCULT BLOOD,URINE MODERATE (Neg); PROTEIN,URINE NEGATIVE (Neg); URINE HCG NEGATIVE (NEG); UROBILINOGEN,URINE 0.2 E.U/dL (0.2-1.0)
[2017-11-04] MEDS ORDERED: insulin regular, human 10 units/0.1 ml syringe IV ONE (09:20)
[2017-11-04 09:29] LABS: COLOR,URINE STRAW (Yellow); UA COLLECTION TYPE CLN CATCH MIDSTREAM
[2017-11-04 09:30] LABS: BACTERIA,URINE FEW /HPF (Neg); MUCUS STRANDS NONE SEEN /LPF (Neg); SQUAMOUS EPITHELIAL CELL,UR MODERATE /LPF (FEW); WBC,URINE 0-4 /HPF (0-4)
[2017-11-04] MEDS ORDERED: normal saline 1000ml 1,000 ML IVB ONE ×2 (09:44)
[2017-11-04] MEDS ORDERED: ketorolac trometh. 30mg/ml inj. IV ONE (09:45)
[2017-11-04] MEDS: acetaminophen 325mg tablet PO SCH ×2 (10:27→13:57)
[2017-11-04 11:07] LABS: ALBUMIN 3.7 G/DL (3.4-5.0); ANION GAP 14 (8-16); BLOOD UREA NITROGEN 21 MG/DL (7-18); BUN/CREATININE RATIO 13.9 (6.6-38.0); CALCIUM 8.1 MG/DL (8.5-10.1); CHLORIDE 99 MMOL/L (99-107); CREATININE 1.51 MG/DL (0.40-0.90); GLUCOSE 379 MG/DL (70-104); POTASSIUM 4.1 MMOL/L (3.5-5.1); SODIUM 137 MMOL/L (135-145); TOTAL CARBON DIOXIDE 23.9 MMOL/L (24-32); eGFR 41 ML/MIN
[2017-11-04 13:19] LABS: URINE AMPHETAMINE SCREEN NEGATIVE (Neg); URINE BARBITUATE SCREEN NEGATIVE (Neg); URINE BENZODIAZEPINES SCREEN NEGATIVE (Neg); URINE CANNABINOID SCREEN NEGATIVE (Neg); URINE COCAINE SCREEN NEGATIVE (Neg); URINE METHADONE SCREEN NEGATIVE (Neg); URINE OPIATE SCREEN NEGATIVE (Neg); URINE PHENCYCLIDINE SCREEN NEGATIVE (Neg)
[2017-11-04] MEDS ORDERED: acetaminophen 1,000mg/100ml IV 100 ML IV SCH (14:00)
[2017-11-04] MEDS ORDERED: MORP15TA PO (14:09)
[2017-11-04] MEDS ORDERED: ONDA8TAB9 PO (14:09)
[2017-11-04] MEDS ORDERED: MORP-64 PO (14:15)
[2017-11-04 14:20] VITALS: BP 163/111
== END 2017-11-04 14:29 | disposition home or self-care (01) ==
LOC: ER 07:59
DX: E11.65 Type 2 diabetes mellitus with hyperglycemia (principal); E11.42 Type 2 diabetes mellitus with diabetic polyneuropathy; Z90.49 Acquired absence of other specified parts of digestive tract; Z98.890 Other specified postprocedural states; Z88.0 Allergy status to penicillin; Z88.2 Allergy status to sulfonamides; Z88.1 Allergy status to other antibiotic agents; Z88.8 Allergy status to other drugs, medicaments and biological substances; Z79.899 Other long term (current) drug therapy
CPT/HCPCS: 36415; 36600; 74176; 80048; 80053; 80305; 81001; 81025; 82803; 82948; 83690; 83735; 84100; 85018; 85025; 96361; 96372; 96374; 96375; 99285; J1815; J1885; J2270; J2765; J7030

== ENCOUNTER 2017-11-09 11:17 | Emergency (ER) | payer MEDICARE, MEDICAID ==
[~2017-11-09] VITALS: Ht 157.5 cm; Wt 64.0 kg
[~2017-11-09 11:17] MED LIST changes: -CIPR-259 PO; +HYDR-4383 PO; -HYDR-569 PO
[2017-11-09 12:04] LABS: HEMATOCRIT 32.3 % (35.0-45.0); HEMOGLOBIN 11.3 g/dl (12.0-16.0); LYMPHOCYTES % (AUTO) 33.6 % (21-51); MEAN CORPUSCULAR HEMOGLOBIN 30.7 PG (27.0-31.0); MEAN CORPUSCULAR HGB CONC 34.8 % (33.0-36.5); MEAN CORPUSCULAR VOLUME 88.3 FL (78-98); MEAN PLATELET VOLUME 7.2 FL (7.4-10.4); NEUTROPHILS % (AUTO) 55.7 % (42-75); PLATELET COUNT 362 X10'3 (140-440); RED BLOOD COUNT 3.67 X10'6 (4.20-5.60); RED CELL DISTRIBUTION WIDTH 13.6 % (11.5-14.5)
[2017-11-09 12:05] LABS: BASOPHILS % (AUTO) 0.3 % (0-1); EOSINOPHILS # (AUTO) 0.1 X10'3 (0-0.9); LYMPHOCYTES # (AUTO) 1.7 X10'3 (1.1-4.8); MONOCYTES # (AUTO) 0.5 X10'3 (0-0.9); MONOCYTES % (AUTO) 9.4 % (2-12); NEUTROPHILS # (AUTO) 2.9 X10'3 (1.8-7.7)
[2017-11-09 12:07] LABS: WHITE BLOOD COUNT 5.2 X10'3 (4.5-11.0)
[2017-11-09 12:09] LABS: PROTHROMBIN TIME 10.5 SECONDS (9.0-12.0)
[2017-11-09] MEDS ORDERED: normal saline 1000ML IV soln IVB ONE (12:10)
[2017-11-09] MEDS ORDERED: ondansetron/PF 4mg/2ml inj IV ONE (12:10)
[2017-11-09 12:15] LABS: ALANINE AMINOTRANSFERASE 19 U/L (12-78); ALBUMIN 3.5 G/DL (3.4-5.0); ALBUMIN/GLOBULIN RATIO 0.9 (1.1-1.5); ALKALINE PHOSPHATASE 106 IU/L (46-116); AMYLASE 46 U/L (25-115); ANION GAP 7 (8-16); ASPARTATE AMINO TRANSFERASE 15 U/L (10-37); BILIRUBIN,TOTAL 0.4 MG/DL (0.1-1.0); BLOOD UREA NITROGEN 9 MG/DL (7-18); BUN/CREATININE RATIO 7.4 (6.6-38.0); CALCIUM 8.8 MG/DL (8.5-10.1); CHLORIDE 103 MMOL/L (99-107); CREATININE 1.21 MG/DL (0.40-0.90); GLUCOSE 80 MG/DL (70-104); LIPASE 141 U/L (73-393); POTASSIUM 3.5 MMOL/L (3.5-5.1); SODIUM 142 MMOL/L (135-145); TOTAL CARBON DIOXIDE 32.2 MMOL/L (24-32); TOTAL PROTEIN 7.4 G/DL (6.4-8.2); eGFR 53 ML/MIN
[2017-11-09] MEDS ORDERED: morphine 4 MG/ML inj SYRINge IV ONE (12:25)
[2017-11-09 13:11] LABS: URINE HCG NEGATIVE (NEG)
[2017-11-09 13:15] LABS: CLARITY,URINE CLOUDY (Clear); COLOR,URINE YELLOW (Yellow); GLUCOSE, URINE NEGATIVE (Neg); KETONES,URINE NEGATIVE (Neg); LEUKOCYTE ESTERASE ,URINE NEGATIVE (Neg); NITRITES, URINE NEGATIVE (Neg); OCCULT BLOOD,URINE MODERATE (Neg); PH,URINE 7.5 (4.8-8.0); PROTEIN,URINE 100 mg/dl (Neg); UA COLLECTION TYPE CLN CATCH MIDSTREAM
[2017-11-09 13:26] LABS: SQUAMOUS EPITHELIAL CELL,UR MANY /LPF (FEW)
[2017-11-09 13:27] LABS: BACTERIA,URINE 1+ /HPF (Neg); WBC,URINE 0-4 /HPF (0-4)
[2017-11-09 14:03] VITALS: BP 173/103
== END 2017-11-09 16:17 | disposition home or self-care (01) ==
LOC: ER 11:17
DX: R10.32 Left lower quadrant pain (principal); R11.2 Nausea with vomiting, unspecified; E11.42 Type 2 diabetes mellitus with diabetic polyneuropathy; Z90.49 Acquired absence of other specified parts of digestive tract; Z88.0 Allergy status to penicillin; Z88.2 Allergy status to sulfonamides; Z88.1 Allergy status to other antibiotic agents; Z79.899 Other long term (current) drug therapy
CPT/HCPCS: 36415; 76830; 76856; 80053; 81001; 81025; 82150; 82948; 83690; 85025; 85610; 96361; 96374; 96375; 99285; J2270; J2405; J7030

== ENCOUNTER 2017-11-17 06:10 | Emergency (ER) | payer MEDICARE, MEDICAID ==
[~2017-11-17] VITALS: Ht 157.5 cm; Wt 57.1 kg
[2017-11-17] MEDS ORDERED: normal saline 1000ML IV soln IVB ONE ×3 (06:40→08:15)
[2017-11-17] MEDS ORDERED: diphenhydrAMINE 50 mg/ml inj IV ONE (06:40)
[2017-11-17] MEDS ORDERED: metoclopramide 5 mg/ml inj IV ONE (06:40)
[2017-11-17] MEDS ORDERED: ketorolac trometh. 30mg/ml inj. IV ONE (06:45)
[2017-11-17] MEDS ORDERED: insulin regular, human 10 units/0.1 ml syringe IV ONE (06:45)
[2017-11-17 07:53] LABS: BASOPHILS % (AUTO) 0.5 % (0-1); EOSINOPHILS # (AUTO) 0.1 X10'3 (0-0.9); EOSINOPHILS % (AUTO) 1.4 % (0-6); HEMATOCRIT 30.2 % (35.0-45.0); HEMOGLOBIN 10.3 g/dl (12.0-16.0); LYMPHOCYTES # (AUTO) 1.3 X10'3 (1.1-4.8); LYMPHOCYTES % (AUTO) 24.4 % (21-51); MEAN CORPUSCULAR HGB CONC 33.9 % (33.0-36.5); MEAN CORPUSCULAR VOLUME 88.3 FL (78-98); MEAN PLATELET VOLUME 7.3 FL (7.4-10.4); MONOCYTES # (AUTO) 0.6 X10'3 (0-0.9); MONOCYTES % (AUTO) 10.6 % (2-12); NEUTROPHILS # (AUTO) 3.2 X10'3 (1.8-7.7); NEUTROPHILS % (AUTO) 63.1 % (42-75); PLATELET COUNT 300 X10'3 (140-440); RED BLOOD COUNT 3.42 X10'6 (4.20-5.60); WHITE BLOOD COUNT 5.2 X10'3 (4.5-11.0)
[2017-11-17 08:03] LABS: ALANINE AMINOTRANSFERASE 18 U/L (12-78); ALBUMIN 2.9 G/DL (3.4-5.0); ALBUMIN/GLOBULIN RATIO 0.8 (1.1-1.5); ALKALINE PHOSPHATASE 98 IU/L (46-116); ANION GAP 7 (8-16); ASPARTATE AMINO TRANSFERASE 18 U/L (10-37); BILIRUBIN,TOTAL 0.3 MG/DL (0.1-1.0); BLOOD UREA NITROGEN 13 MG/DL (7-18); BUN/CREATININE RATIO 10.5 (6.6-38.0); CHLORIDE 107 MMOL/L (99-107); CREATININE 1.24 MG/DL (0.40-0.90); GLUCOSE 127 MG/DL (70-104); LIPASE 228 U/L (73-393); POTASSIUM 3.4 MMOL/L (3.5-5.1); SODIUM 144 MMOL/L (135-145); TOTAL CARBON DIOXIDE 30.4 MMOL/L (24-32); TOTAL PROTEIN 6.5 G/DL (6.4-8.2); eGFR 52 ML/MIN
[2017-11-17 08:32] VITALS: BP 125/79
[2017-11-17 08:33] LABS: URINE HCG NEGATIVE (NEG)
[2017-11-17 08:36] LABS: CLARITY,URINE CLEAR (Clear); COLOR,URINE YELLOW (Yellow); GLUCOSE, URINE >=1000 mg/dl (Neg); KETONES,URINE NEGATIVE (Neg); LEUKOCYTE ESTERASE ,URINE NEGATIVE (Neg); NITRITES, URINE NEGATIVE (Neg); OCCULT BLOOD,URINE MODERATE (Neg); PROTEIN,URINE 30 mg/dl (Neg)
[2017-11-17 08:47] LABS: RBC,URINE 0-2 /HPF (0-2); UA COLLECTION TYPE CLN CATCH MIDSTREAM; WBC,URINE 0-4 /HPF (0-4)
[2017-11-17 08:48] LABS: BACTERIA,URINE FEW /HPF (Neg); MUCUS STRANDS NONE SEEN /LPF (Neg); SQUAMOUS EPITHELIAL CELL,UR FEW /LPF (FEW)
[2017-11-17] MEDS ORDERED: ONDA4TAB12 PO (09:27)
== END 2017-11-17 09:35 | disposition home or self-care (01) ==
LOC: ER 06:11
DX: E11.65 Type 2 diabetes mellitus with hyperglycemia (principal); E11.42 Type 2 diabetes mellitus with diabetic polyneuropathy; Z90.49 Acquired absence of other specified parts of digestive tract; Z88.0 Allergy status to penicillin; Z88.2 Allergy status to sulfonamides; Z88.1 Allergy status to other antibiotic agents; Z79.4 Long term (current) use of insulin; Z79.899 Other long term (current) drug therapy
CPT/HCPCS: 36415; 80053; 81001; 81025; 82948; 83690; 85025; 96361; 96374; 96375; 99285; J1200; J1815; J1885; J2765; J7030

== ENCOUNTER 2017-11-22 06:53 | Inpatient (IN) | payer MEDICARE, MEDICAID ==
[~2017-11-22] VITALS: Ht 157.5 cm; Wt 60.0 kg
[~2017-11-22 06:53] MED LIST changes: -METO10TA3 PO; +ONDA4TAB12 PO
[2017-11-22] MEDS ORDERED: metoclopramide 5 mg/ml inj IV ONE (07:15)
[2017-11-22] MEDS ORDERED: diphenhydrAMINE 50 mg/ml inj IV ONE (07:15)
[2017-11-22] MEDS ORDERED: insulin regular, human 10 units/0.1 ml syringe IV ONE ×2 (07:15→11:20)
[2017-11-22] MEDS ORDERED: normal saline 1000ML IV soln IVB ONE ×2 (07:15→08:20)
[2017-11-22] MEDS ORDERED: ondansetron/PF 4mg/2ml inj IV ONE ×2 (07:15→11:05)
[2017-11-22 07:40] LABS: BASOPHILS % (AUTO) 0.4 % (0-1); EOSINOPHILS # (AUTO) 0.1 X10'3 (0-0.9); EOSINOPHILS % (AUTO) 1.1 % (0-6); HEMOGLOBIN 11.8 g/dl (12.0-16.0); LYMPHOCYTES # (AUTO) 1.1 X10'3 (1.1-4.8); LYMPHOCYTES % (AUTO) 17.3 % (21-51); MEAN CORPUSCULAR HEMOGLOBIN 29.6 PG (27.0-31.0); MEAN CORPUSCULAR HGB CONC 33.6 % (33.0-36.5); MEAN CORPUSCULAR VOLUME 88.1 FL (78-98); MEAN PLATELET VOLUME 7.2 FL (7.4-10.4); MONOCYTES # (AUTO) 0.3 X10'3 (0-0.9); MONOCYTES % (AUTO) 4.1 % (2-12); NEUTROPHILS # (AUTO) 5.1 X10'3 (1.8-7.7); NEUTROPHILS % (AUTO) 77.1 % (42-75); PLATELET COUNT 479 X10'3 (140-440); RED BLOOD COUNT 3.97 X10'6 (4.20-5.60); RED CELL DISTRIBUTION WIDTH 13.8 % (11.5-14.5); WHITE BLOOD COUNT 6.6 X10'3 (4.5-11.0)
[2017-11-22] MEDS: morphine 4 MG/ML inj SYRINge IV PRN ×4 (07:40→13:05)
[2017-11-22 07:54] LABS: URINE HCG NEGATIVE (NEG)
[2017-11-22 07:56] LABS: CLARITY,URINE CLEAR (Clear); COLOR,URINE YELLOW (Yellow); GLUCOSE, URINE >=1000 mg/dl (Neg); KETONES,URINE NEGATIVE (Neg); LEUKOCYTE ESTERASE ,URINE NEGATIVE (Neg); NITRITES, URINE NEGATIVE (Neg); OCCULT BLOOD,URINE MODERATE (Neg); PROTEIN,URINE 100 mg/dl (Neg); UROBILINOGEN,URINE 0.2 E.U/dL (0.2-1.0)
[2017-11-22 07:57] LABS: UA COLLECTION TYPE NON-SPECIFIED
[2017-11-22 08:14] LABS: ALANINE AMINOTRANSFERASE 21 U/L (12-78); ALBUMIN 3.5 G/DL (3.4-5.0); ALBUMIN/GLOBULIN RATIO 0.9 (1.1-1.5); ALKALINE PHOSPHATASE 111 IU/L (46-116); ANION GAP 14 (8-16); ASPARTATE AMINO TRANSFERASE 20 U/L (10-37); BILIRUBIN,TOTAL 0.6 MG/DL (0.1-1.0); BLOOD UREA NITROGEN 12 MG/DL (7-18); BUN/CREATININE RATIO 9.3 (6.6-38.0); CALCIUM 8.8 MG/DL (8.5-10.1); CHLORIDE 98 MMOL/L (99-107); CREATININE 1.29 MG/DL (0.40-0.90); LIPASE 100 U/L (73-393); MAGNESIUM 1.5 MG/DL (1.5-2.4); POTASSIUM 3.8 MMOL/L (3.5-5.1); SODIUM 139 MMOL/L (135-145); TOTAL CARBON DIOXIDE 26.6 MMOL/L (24-32); TOTAL PROTEIN 7.5 G/DL (6.4-8.2); eGFR 49 ML/MIN
[2017-11-22 08:15] LABS: INR 1.1 INR; PROTHROMBIN TIME 11.1 SECONDS (9.0-12.0)
[2017-11-22 08:16] LABS: GLUCOSE 499 MG/DL (70-104)
[2017-11-22] MEDS ORDERED: ONDA8TAB9 PO (08:20)
[2017-11-22] MEDS ORDERED: haloperidol lactate 5mg/ml inj IM ONE (08:30)
[2017-11-22 08:44] LABS: BACTERIA,URINE FEW /HPF (Neg); RBC,URINE 0-2 /HPF (0-2); SQUAMOUS EPITHELIAL CELL,UR MODERATE /LPF (FEW); TRANSITIONAL EPI CELLS,URINE FEW /HPF; WBC,URINE NONE SEEN /HPF (0-4)
[2017-11-22] MEDS ORDERED: ketorolac trometh. 30mg/ml inj. IV ONE (09:15)
[2017-11-22] MEDS ORDERED: GABA-532 PO (10:51)
[2017-11-22] MEDS ORDERED: INSU100V11 SQ (10:51)
[2017-11-22] MEDS ORDERED: LANTUS SQ (10:51)
[2017-11-22] MEDS ORDERED: proCHLORperazine 10 MG/2 ml inj IV ONE (10:55)
[2017-11-22] MEDS ORDERED: mag hydrox/Alum hydrox/simeth 30ml oral suspension PO PRN (12:15)
[2017-11-22] MEDS ORDERED: dextrose ORAL solution 15 GM/59 ML bottle PO PRN ×2 (12:15)
[2017-11-22] MEDS ORDERED: acetaminophen 325mg tablet PO PRN (12:15)
[2017-11-22] MEDS ORDERED: glucagon, human recombinant 1mg kit SUBCUT PRN (12:15)
[2017-11-22] MEDS ORDERED: magnesium hydroxide 30ml (MOM) UD suspension PO PRN (12:15)
[2017-11-22] MEDS ORDERED: MESSAGE TO PHARMACY PO ONE (12:15)
[2017-11-22] MEDS ORDERED: HYDROcodone/acetaminophen 5mg/325mg tablet PO PRN (12:15)
[2017-11-22] MEDS ORDERED: dextrose 50%-water 50ml dispensing syringe IV PRN ×2 (12:15)
[2017-11-22 12:23] LABS: URINE AMPHETAMINE SCREEN NEGATIVE (Neg); URINE BARBITUATE SCREEN NEGATIVE (Neg); URINE BENZODIAZEPINES SCREEN NEGATIVE (Neg); URINE CANNABINOID SCREEN NEGATIVE (Neg); URINE COCAINE SCREEN NEGATIVE (Neg); URINE METHADONE SCREEN NEGATIVE (Neg); URINE OPIATE SCREEN NEGATIVE (Neg); URINE PHENCYCLIDINE SCREEN NEGATIVE (Neg)
[2017-11-22 12:54] LABS: AMYLASE 40 U/L (25-115)
[2017-11-22] MEDS: ondansetron/PF 4mg/2ml inj IV PRN ×2 (13:04→19:09)
[2017-11-22] MEDS: potassium Cl 20mEq in NS 1,000 ML IV SCH ×2 (13:05→23:45)
[2017-11-22] MEDS: insulin Lispro (HumaLOG) vial - multi-dose SQ SCH ×2 (13:59→21:21)
[2017-11-22] MEDS: metoclopramide 5 mg/ml inj IV PRN ×2 (14:38→21:10)
[2017-11-22 15:59] VITALS: BP 181/101
[2017-11-22] MEDS ORDERED: normal saline 1000ml 1,000 ML IV ONE (16:05)
[2017-11-22] MEDS: cloNIDine 0.1 mg tablet PO PRN ×2 (16:19→23:45)
[2017-11-22] MEDS: morphine 2 MG/ML inj. syringe IV PRN ×2 (16:47→21:04)
[2017-11-22 19:30] VITALS: BP 164/62
[2017-11-22] MEDS ORDERED: insulin glargine (Lantus) pen - multi-dose SQ SCH (21:00)
[2017-11-22] MEDS: gabapentin 300mg capsule PO SCH (21:10)
[2017-11-22 23:08] VITALS: BP 189/102
[2017-11-22] MEDS ORDERED: proCHLORperazine 10 MG/2 ml inj IV PRN (23:20)
[2017-11-23] MEDS: morphine 2 MG/ML inj. syringe IV PRN ×3 (03:22→12:18)
[2017-11-23 03:29] VITALS: BP 115/71
[2017-11-23 06:11] LABS: BASOPHILS % (AUTO) 0.2 % (0-1); EOSINOPHILS # (AUTO) 0.1 X10'3 (0-0.9); EOSINOPHILS % (AUTO) 1.1 % (0-6); HEMATOCRIT 27.5 % (35.0-45.0); HEMOGLOBIN 9.1 g/dl (12.0-16.0); LYMPHOCYTES % (AUTO) 17.6 % (21-51); MEAN CORPUSCULAR HEMOGLOBIN 29.5 PG (27.0-31.0); MEAN CORPUSCULAR VOLUME 89.3 FL (78-98); MEAN PLATELET VOLUME 7.3 FL (7.4-10.4); MONOCYTES # (AUTO) 0.7 X10'3 (0-0.9); MONOCYTES % (AUTO) 6.4 % (2-12); NEUTROPHILS # (AUTO) 8.3 X10'3 (1.8-7.7); NEUTROPHILS % (AUTO) 74.7 % (42-75); PLATELET COUNT 307 X10'3 (140-440); RED BLOOD COUNT 3.08 X10'6 (4.20-5.60); RED CELL DISTRIBUTION WIDTH 14.2 % (11.5-14.5); WHITE BLOOD COUNT 11.1 X10'3 (4.5-11.0)
[2017-11-23 06:35] LABS: ALANINE AMINOTRANSFERASE 55 U/L (12-78); ALBUMIN 2.6 G/DL (3.4-5.0); ALBUMIN/GLOBULIN RATIO 0.9 (1.1-1.5); ALKALINE PHOSPHATASE 114 IU/L (46-116); ANION GAP 9 (8-16); ASPARTATE AMINO TRANSFERASE 86 U/L (10-37); BILIRUBIN,TOTAL 0.7 MG/DL (0.1-1.0); BLOOD UREA NITROGEN 14 MG/DL (7-18); BUN/CREATININE RATIO 12.3 (6.6-38.0); CALCIUM 6.9 MG/DL (8.5-10.1); CHLORIDE 106 MMOL/L (99-107); CREATININE 1.14 MG/DL (0.40-0.90); GLUCOSE 182 MG/DL (70-104); POTASSIUM 3.9 MMOL/L (3.5-5.1); SODIUM 141 MMOL/L (135-145); TOTAL CARBON DIOXIDE 26.2 MMOL/L (24-32); TOTAL PROTEIN 5.6 G/DL (6.4-8.2); eGFR 57 ML/MIN
[2017-11-23 06:59] VITALS: BP 114/71
[2017-11-23] MEDS ORDERED: enoxaparin 40mg/0.4ml syringe SUBCUT SCH (08:00)
[2017-11-23] MEDS: gabapentin 300mg capsule PO SCH ×2 (08:20→12:18)
[2017-11-23] MEDS: insulin Lispro (HumaLOG) vial - multi-dose SQ SCH ×2 (08:26→13:30)
[2017-11-23 11:00] VITALS: BP 124/75
[2017-11-23] MEDS: potassium Cl 20mEq in NS 1,000 ML IV SCH (12:18)
[2017-11-23] MEDS ORDERED: HYDR-4383 PO (13:56)
== END 2017-11-23 15:30 | disposition home or self-care (01) | DRG 638 ==
LOC: ER 06:53 → ED HOLD 12:14 → SUR 3N 15:40
PROVIDERS: ADMIT Internal Medicine; ATTEND Internal Medicine
DX: E10.65 Type 1 diabetes mellitus with hyperglycemia (principal); N17.9 Acute kidney failure, unspecified; E10.42 Type 1 diabetes mellitus with diabetic polyneuropathy; E86.0 Dehydration; M79.18 Myalgia, other site; F17.210 Nicotine dependence, cigarettes, uncomplicated; Z90.49 Acquired absence of other specified parts of digestive tract; Z88.1 Allergy status to other antibiotic agents; Z88.0 Allergy status to penicillin; Z88.2 Allergy status to sulfonamides; Z88.8 Allergy status to other drugs, medicaments and biological substances; Z79.899 Other long term (current) drug therapy; Z79.4 Long term (current) use of insulin
CPT/HCPCS: 36415; 72148; 80053; 80305; 81001; 81025; 82150; 82948; 83690; 83735; 85025; 85610; 87070; 96361; 96372; 96374; 96375; 96376; 99285; J0780; J1200; J1630; J1650; J1815; J1885; J2270; J2405; J2765; J7030

== ENCOUNTER 2017-12-18 07:47 | Emergency (ER) | payer MEDICARE, MEDICAID ==
[~2017-12-18] VITALS: Ht 157.5 cm; Wt 59.1 kg
[~2017-12-18 07:47] MED LIST changes: +GABA-532 PO; +INSU100V11 SQ; +LANTUS SQ; -METH500T PO; -ONDA8TAB9 PO
[2017-12-18] MEDS ORDERED: ondansetron/PF 4mg/2ml inj IV ONE (08:25)
[2017-12-18] MEDS ORDERED: diphenhydrAMINE 50 mg/ml inj IV ONE (08:25)
[2017-12-18] MEDS ORDERED: normal saline 1000ML IV soln IVB ONE (08:25)
[2017-12-18 09:14] LABS: ALANINE AMINOTRANSFERASE 63 U/L (12-78); ALBUMIN 3.7 G/DL (3.4-5.0); ALBUMIN/GLOBULIN RATIO 0.8 (1.1-1.5); ALKALINE PHOSPHATASE 132 IU/L (46-116); ANION GAP 14 (8-16); ASPARTATE AMINO TRANSFERASE 89 U/L (10-37); BILIRUBIN,TOTAL 0.8 MG/DL (0.1-1.0); BLOOD UREA NITROGEN 23 MG/DL (7-18); BUN/CREATININE RATIO 19.3 (6.6-38.0); CALCIUM 9.5 MG/DL (8.5-10.1); CHLORIDE 96 MMOL/L (99-107); CREATININE 1.19 MG/DL (0.40-0.90); GLUCOSE 134 MG/DL (70-104); LIPASE 244 U/L (73-393); POTASSIUM 3.9 MMOL/L (3.5-5.1); SODIUM 137 MMOL/L (135-145); TOTAL PROTEIN 8.5 G/DL (6.4-8.2); eGFR 54 ML/MIN
[2017-12-18] MEDS ORDERED: proCHLORperazine 10 MG/2 ml inj IV ONE (09:35)
[2017-12-18 09:46] LABS: BASOPHILS % (AUTO) 0.3 % (0-1); EOSINOPHILS # (AUTO) 0.1 X10'3 (0-0.9); EOSINOPHILS % (AUTO) 1.3 % (0-6); HEMATOCRIT 37.2 % (35.0-45.0); HEMOGLOBIN 12.6 g/dl (12.0-16.0); LYMPHOCYTES % (AUTO) 29.7 % (21-51); MEAN CORPUSCULAR HEMOGLOBIN 29.6 PG (27.0-31.0); MEAN CORPUSCULAR HGB CONC 33.9 % (33.0-36.5); MEAN CORPUSCULAR VOLUME 87.5 FL (78-98); MEAN PLATELET VOLUME 7.7 FL (7.4-10.4); MONOCYTES # (AUTO) 0.4 X10'3 (0-0.9); MONOCYTES % (AUTO) 6.7 % (2-12); NEUTROPHILS # (AUTO) 4.1 X10'3 (1.8-7.7); PLATELET COUNT 470 X10'3 (140-440); RED BLOOD COUNT 4.25 X10'6 (4.20-5.60); WHITE BLOOD COUNT 6.6 X10'3 (4.5-11.0)
[2017-12-18] MEDS ORDERED: ONDA8TAB6 PO (10:08)
[2017-12-18 10:18] VITALS: BP 159/95
== END 2017-12-18 10:19 | disposition home or self-care (01) ==
LOC: ER 07:48
DX: R11.2 Nausea with vomiting, unspecified (principal); E10.42 Type 1 diabetes mellitus with diabetic polyneuropathy; R10.84 Generalized abdominal pain; M54.5 Low back pain; Z90.49 Acquired absence of other specified parts of digestive tract; Z88.1 Allergy status to other antibiotic agents; Z88.0 Allergy status to penicillin; Z88.2 Allergy status to sulfonamides; Z88.8 Allergy status to other drugs, medicaments and biological substances
CPT/HCPCS: 36415; 80053; 82948; 83690; 85025; 96361; 96374; 96375; 99284; J0780; J1200; J2405; J7030

== ENCOUNTER 2017-12-21 03:52 | Emergency (ER) | payer MEDICARE, MEDICAID ==
[~2017-12-21] VITALS: Ht 157.5 cm; Wt 59.0 kg
[~2017-12-21 03:52] MED LIST changes: +ONDA8TAB6 PO
[2017-12-21] MEDS ORDERED: normal saline 1000ML IV soln IVB ONE ×2 (04:20→05:35)
[2017-12-21] MEDS ORDERED: LORazepam 2 mg/ml vial IV ONE (04:20)
[2017-12-21] MEDS ORDERED: ketorolac tromethamine 15mg/ml inj. IV ONE (04:20)
[2017-12-21] MEDS ORDERED: ondansetron/PF 4mg/2ml inj IV ONE (04:20)
[2017-12-21 05:13] LABS: BASOPHILS % (AUTO) 0.4 % (0-1); EOSINOPHILS % (AUTO) 1.3 % (0-6); HEMATOCRIT 32.2 % (35.0-45.0); HEMOGLOBIN 10.9 g/dl (12.0-16.0); LYMPHOCYTES # (AUTO) 1.3 X10'3 (1.1-4.8); LYMPHOCYTES % (AUTO) 35.3 % (21-51); MEAN CORPUSCULAR HEMOGLOBIN 29.8 PG (27.0-31.0); MEAN CORPUSCULAR HGB CONC 33.9 % (33.0-36.5); MEAN CORPUSCULAR VOLUME 87.9 FL (78-98); MEAN PLATELET VOLUME 7.1 FL (7.4-10.4); MONOCYTES # (AUTO) 0.4 X10'3 (0-0.9); MONOCYTES % (AUTO) 10.7 % (2-12); NEUTROPHILS # (AUTO) 1.9 X10'3 (1.8-7.7); NEUTROPHILS % (AUTO) 52.3 % (42-75); PLATELET COUNT 351 X10'3 (140-440); RED BLOOD COUNT 3.66 X10'6 (4.20-5.60); RED CELL DISTRIBUTION WIDTH 14.9 % (11.5-14.5); WHITE BLOOD COUNT 3.6 X10'3 (4.5-11.0)
[2017-12-21 05:23] LABS: URINE HCG NEGATIVE (NEG)
[2017-12-21 05:28] LABS: ALANINE AMINOTRANSFERASE 40 U/L (12-78); ALBUMIN 3.3 G/DL (3.4-5.0); ALBUMIN/GLOBULIN RATIO 0.8 (1.1-1.5); ALKALINE PHOSPHATASE 111 IU/L (46-116); ANION GAP 9 (8-16); ASPARTATE AMINO TRANSFERASE 43 U/L (10-37); BILIRUBIN,TOTAL 0.2 MG/DL (0.1-1.0); BLOOD UREA NITROGEN 13 MG/DL (7-18); BUN/CREATININE RATIO 11.8 (6.6-38.0); CALCIUM 8.3 MG/DL (8.5-10.1); CHLORIDE 101 MMOL/L (99-107); LIPASE 445 U/L (73-393); POTASSIUM 4.1 MMOL/L (3.5-5.1); SODIUM 137 MMOL/L (135-145); TOTAL PROTEIN 7.5 G/DL (6.4-8.2); eGFR 59 ML/MIN
[2017-12-21 05:30] LABS: GLUCOSE 458 MG/DL (70-104)
[2017-12-21 05:34] LABS: CLARITY,URINE SLIGHTLY CLOUDY (Clear); COLOR,URINE RED (Yellow); GLUCOSE, URINE >=1000 mg/dl (Neg); KETONES,URINE NEGATIVE (Neg); LEUKOCYTE ESTERASE ,URINE NEGATIVE (Neg); NITRITES, URINE NEGATIVE (Neg); OCCULT BLOOD,URINE LARGE (Neg); PROTEIN,URINE 30 mg/dl (Neg); UROBILINOGEN,URINE 0.2 E.U/dL (0.2-1.0)
[2017-12-21] MEDS ORDERED: insulin regular, human 10 units/0.1 ml syringe IV ONE (05:35)
[2017-12-21 05:39] LABS: UA COLLECTION TYPE CLN CATCH MIDSTREAM
[2017-12-21 06:10] LABS: BACTERIA,URINE FEW /HPF (Neg); MUCUS STRANDS NONE SEEN /LPF (Neg); RBC,URINE TNTC /HPF (0-2); SQUAMOUS EPITHELIAL CELL,UR MODERATE /LPF (FEW); WBC,URINE 0-4 /HPF (0-4)
[2017-12-21] MEDS ORDERED: diphenhydrAMINE 50 mg/ml inj IV ONE (06:10)
[2017-12-21] MEDS ORDERED: metoclopramide 5 mg/ml inj IV ONE (06:20)
[2017-12-21] MEDS ORDERED: METO5TAB98 PO (06:27)
[2017-12-21 07:51] VITALS: BP 145/98
== END 2017-12-21 07:52 | disposition home or self-care (01) ==
LOC: ER 03:53
DX: E11.43 Type 2 diabetes mellitus with diabetic autonomic (poly)neuropathy (principal); K31.84 Gastroparesis; E11.65 Type 2 diabetes mellitus with hyperglycemia; Z90.49 Acquired absence of other specified parts of digestive tract; Z98.890 Other specified postprocedural states; Z88.0 Allergy status to penicillin; Z88.1 Allergy status to other antibiotic agents; Z88.2 Allergy status to sulfonamides; Z88.8 Allergy status to other drugs, medicaments and biological substances; Z79.4 Long term (current) use of insulin; Z79.899 Other long term (current) drug therapy
CPT/HCPCS: 36415; 71045; 80053; 81001; 81025; 82948; 83690; 85025; 96361; 96374; 96375; 99285; J1200; J1815; J1885; J2060; J2405; J2765

== ENCOUNTER 2017-12-29 13:29 | Emergency (ER) | payer MEDICARE, MEDICAID ==
[~2017-12-29] VITALS: Ht 157.5 cm; Wt 55.5 kg
[~2017-12-29 13:29] MED LIST changes: +METO5TAB98 PO
[2017-12-29 14:19] LABS: BASOPHILS % (AUTO) 0.2 % (0-1); EOSINOPHILS % (AUTO) 0.6 % (0-6); HEMATOCRIT 35.6 % (35.0-45.0); HEMOGLOBIN 12.1 g/dl (12.0-16.0); LYMPHOCYTES # (AUTO) 0.9 X10'3 (1.1-4.8); LYMPHOCYTES % (AUTO) 17.8 % (21-51); MEAN CORPUSCULAR HEMOGLOBIN 29.5 PG (27.0-31.0); MEAN CORPUSCULAR HGB CONC 33.9 % (33.0-36.5); MEAN CORPUSCULAR VOLUME 87.1 FL (78-98); MEAN PLATELET VOLUME 6.4 FL (7.4-10.4); MONOCYTES # (AUTO) 0.2 X10'3 (0-0.9); MONOCYTES % (AUTO) 3.4 % (2-12); NEUTROPHILS # (AUTO) 3.9 X10'3 (1.8-7.7); PLATELET COUNT 456 X10'3 (140-440); RED BLOOD COUNT 4.09 X10'6 (4.20-5.60); RED CELL DISTRIBUTION WIDTH 14.7 % (11.5-14.5)
[2017-12-29 14:23] LABS: URINE HCG NEGATIVE (NEG)
[2017-12-29 14:26] LABS: CLARITY,URINE SLIGHTLY CLOUDY (Clear); COLOR,URINE STRAW (Yellow); GLUCOSE, URINE >=1000 mg/dl (Neg); KETONES,URINE NEGATIVE (Neg); LEUKOCYTE ESTERASE ,URINE NEGATIVE (Neg); NITRITES, URINE NEGATIVE (Neg); OCCULT BLOOD,URINE MODERATE (Neg); PROTEIN,URINE 100 mg/dl (Neg); UROBILINOGEN,URINE 0.2 E.U/dL (0.2-1.0)
[2017-12-29 14:33] LABS: ALANINE AMINOTRANSFERASE 177 U/L (12-78); ALBUMIN 3.6 G/DL (3.4-5.0); ALBUMIN/GLOBULIN RATIO 0.8 (1.1-1.5); ALKALINE PHOSPHATASE 223 IU/L (46-116); ANION GAP 13 (8-16); ASPARTATE AMINO TRANSFERASE 254 U/L (10-37); BILIRUBIN,TOTAL 0.7 MG/DL (0.1-1.0); BLOOD UREA NITROGEN 13 MG/DL (7-18); BUN/CREATININE RATIO 9.6 (6.6-38.0); CALCIUM 9.2 MG/DL (8.5-10.1); CHLORIDE 97 MMOL/L (99-107); CREATININE 1.35 MG/DL (0.40-0.90); POTASSIUM 4.9 MMOL/L (3.5-5.1); SODIUM 136 MMOL/L (135-145); TOTAL CARBON DIOXIDE 26.1 MMOL/L (24-32); TOTAL PROTEIN 8.1 G/DL (6.4-8.2); eGFR 46 ML/MIN
[2017-12-29 14:35] LABS: INR 1.1 INR; PROTHROMBIN TIME 11.4 SECONDS (9.0-12.0)
[2017-12-29] MEDS ORDERED: ondansetron/PF 4mg/2ml inj IV ONE (14:35)
[2017-12-29] MEDS ORDERED: normal saline 1000ML IV soln IVB ONE (14:35)
[2017-12-29] MEDS ORDERED: HYDROmorphone 1 mg/ml syringe IV ONE (14:35)
[2017-12-29 14:37] LABS: GLUCOSE 471 MG/DL (70-104)
[2017-12-29 14:38] LABS: UA COLLECTION TYPE CLN CATCH MIDSTREAM
[2017-12-29 14:42] LABS: BACTERIA,URINE 1+ /HPF (Neg); MUCUS STRANDS NONE SEEN /LPF (Neg); RENAL CELLS, URINE FEW /HPF; SQUAMOUS EPITHELIAL CELL,UR MANY /LPF (FEW); WBC,URINE 0-4 /HPF (0-4)
[2017-12-29 14:47] LABS: LIPASE 138 U/L (73-393)
[2017-12-29] MEDS ORDERED: insulin regular, human 10 units/0.1 ml syringe IV ONE (14:50)
[2017-12-29] MEDS ORDERED: proCHLORperazine 10 MG/2 ml inj IV ONE (15:40)
[2017-12-29] MEDS ORDERED: diphenhydrAMINE 50 mg/ml inj IV ONE (15:40)
[2017-12-29] MEDS ORDERED: ketorolac tromethamine 15mg/ml inj. IV ONE (16:40)
[2017-12-29 17:14] VITALS: BP 170/87
== END 2017-12-29 17:16 | disposition home or self-care (01) ==
LOC: ER 13:30
DX: E11.65 Type 2 diabetes mellitus with hyperglycemia (principal); R11.2 Nausea with vomiting, unspecified; E11.42 Type 2 diabetes mellitus with diabetic polyneuropathy; Z90.49 Acquired absence of other specified parts of digestive tract; Z88.0 Allergy status to penicillin; Z88.1 Allergy status to other antibiotic agents; Z88.2 Allergy status to sulfonamides; Z88.8 Allergy status to other drugs, medicaments and biological substances; Z79.4 Long term (current) use of insulin; Z79.899 Other long term (current) drug therapy
CPT/HCPCS: 36415; 80053; 81001; 81025; 82948; 83690; 85025; 85610; 96361; 96374; 96375; 99283; J0780; J1170; J1200; J1815; J1885; J2405; J7030; 99284

== ENCOUNTER 2018-01-19 16:25 | Emergency (ER) | payer MEDICARE, MEDICAID ==
[~2018-01-19] VITALS: Ht 157.5 cm; Wt 59.0 kg
[~2018-01-19 16:25] MED LIST changes: -METO5TAB98 PO
[2018-01-19 16:32] VITALS: BP 142/68
[2018-01-19 16:59] LABS: URINE HCG NEGATIVE (NEG)
[2018-01-19 17:01] LABS: CLARITY,URINE SLIGHTLY CLOUDY (Clear); COLOR,URINE YELLOW (Yellow); GLUCOSE, URINE >=1000 mg/dl (Neg); KETONES,URINE NEGATIVE (Neg); LEUKOCYTE ESTERASE ,URINE SMALL (Neg); NITRITES, URINE NEGATIVE (Neg); OCCULT BLOOD,URINE SMALL (Neg); PROTEIN,URINE NEGATIVE (Neg); UROBILINOGEN,URINE 0.2 E.U/dL (0.2-1.0)
[2018-01-19 17:16] LABS: UA COLLECTION TYPE CLN CATCH MIDSTREAM
[2018-01-19 17:18] LABS: BACTERIA,URINE 4+ /HPF (Neg); MUCUS STRANDS FEW /LPF (Neg); SQUAMOUS EPITHELIAL CELL,UR MANY /LPF (FEW); WBC,URINE 20-30 /HPF (0-4)
[2018-01-19] MEDS ORDERED: normal saline 1000ML IV soln IVB ONE (19:05)
[2018-01-19] MEDS ORDERED: ciprofloxacin 250mg tablet PO ONE (19:10)
[2018-01-19 19:25] LABS: BASOPHILS % (AUTO) 0.5 % (0-1); EOSINOPHILS # (AUTO) 0.1 X10'3 (0-0.9); EOSINOPHILS % (AUTO) 1.2 % (0-6); HEMATOCRIT 32.7 % (35.0-45.0); HEMOGLOBIN 11.1 g/dl (12.0-16.0); LYMPHOCYTES # (AUTO) 1.8 X10'3 (1.1-4.8); LYMPHOCYTES % (AUTO) 23.7 % (21-51); MEAN CORPUSCULAR HEMOGLOBIN 30.2 PG (27.0-31.0); MEAN CORPUSCULAR HGB CONC 33.8 % (33.0-36.5); MEAN CORPUSCULAR VOLUME 89.2 FL (78-98); MONOCYTES # (AUTO) 0.4 X10'3 (0-0.9); NEUTROPHILS # (AUTO) 5.4 X10'3 (1.8-7.7); NEUTROPHILS % (AUTO) 69.6 % (42-75); PLATELET COUNT 319 X10'3 (140-440); RED BLOOD COUNT 3.66 X10'6 (4.20-5.60); WHITE BLOOD COUNT 7.7 X10'3 (4.5-11.0)
[2018-01-19 19:40] LABS: ALANINE AMINOTRANSFERASE 28 U/L (12-78); ALBUMIN 3.4 G/DL (3.4-5.0); ALBUMIN/GLOBULIN RATIO 0.9 (1.1-1.5); ALKALINE PHOSPHATASE 98 IU/L (46-116); ANION GAP 9 (8-16); ASPARTATE AMINO TRANSFERASE 21 U/L (10-37); BILIRUBIN,TOTAL 0.6 MG/DL (0.1-1.0); BLOOD UREA NITROGEN 17 MG/DL (7-18); BUN/CREATININE RATIO 14.2 (6.6-38.0); CHLORIDE 96 MMOL/L (99-107); GLUCOSE 259 MG/DL (70-104); POTASSIUM 4.5 MMOL/L (3.5-5.1); SODIUM 133 MMOL/L (135-145); TOTAL CARBON DIOXIDE 27.6 MMOL/L (24-32); TOTAL PROTEIN 7.3 G/DL (6.4-8.2); eGFR 53 ML/MIN
[2018-01-19] MEDS ORDERED: CIPR-230 PO (19:53)
[2018-01-19] MEDS ORDERED: ketorolac trometh. 30mg/ml inj. IV ONE (19:55)
[2018-01-19] MEDS ORDERED: oseltamivir phos 75mg capsule PO ONE (20:00)
== END 2018-01-19 20:42 | disposition home or self-care (01) ==
LOC: ER 16:26
DX: N39.0 Urinary tract infection, site not specified (principal); E10.65 Type 1 diabetes mellitus with hyperglycemia; E10.42 Type 1 diabetes mellitus with diabetic polyneuropathy; Z90.49 Acquired absence of other specified parts of digestive tract; Z98.890 Other specified postprocedural states; Z88.0 Allergy status to penicillin; Z88.2 Allergy status to sulfonamides; Z88.1 Allergy status to other antibiotic agents; Z88.8 Allergy status to other drugs, medicaments and biological substances; Z79.2 Long term (current) use of antibiotics; Z79.899 Other long term (current) drug therapy
CPT/HCPCS: 36415; 80053; 81001; 81025; 82948; 85025; 96361; 96374; 99283; J1885; J7030

== ENCOUNTER 2018-01-21 08:23 | Emergency (ER) | payer MEDICARE, MEDICAID ==
[~2018-01-21] VITALS: Ht 157.5 cm; Wt 59.0 kg
[~2018-01-21 08:23] MED LIST changes: +CIPR-230 PO
[2018-01-21] MEDS ORDERED: normal saline 1000ML IV soln IVB ONE ×2 (08:40→09:40)
[2018-01-21] MEDS ORDERED: ondansetron/PF 4mg/2ml inj IV ONE (08:40)
[2018-01-21] MEDS ORDERED: diphenhydrAMINE 50 mg/ml inj IV ONE (08:45)
[2018-01-21] MEDS ORDERED: insulin regular, human 10 units/0.1 ml syringe IV ONE (09:10)
[2018-01-21 09:25] LABS: HCG SERUM QL NEGATIVE
[2018-01-21 09:32] LABS: ALANINE AMINOTRANSFERASE 30 U/L (12-78); ALBUMIN 3.7 G/DL (3.4-5.0); ALBUMIN/GLOBULIN RATIO 0.9 (1.1-1.5); ALKALINE PHOSPHATASE 89 IU/L (46-116); ANION GAP 14 (8-16); ASPARTATE AMINO TRANSFERASE 24 U/L (10-37); BILIRUBIN,TOTAL 0.4 MG/DL (0.1-1.0); BLOOD UREA NITROGEN 24 MG/DL (7-18); BUN/CREATININE RATIO 18.3 (6.6-38.0); CALCIUM 9.6 MG/DL (8.5-10.1); CHLORIDE 97 MMOL/L (99-107); CREATININE 1.31 MG/DL (0.40-0.90); LIPASE 502 U/L (73-393); MAGNESIUM 1.8 MG/DL (1.5-2.4); POTASSIUM 4.7 MMOL/L (3.5-5.1); SODIUM 137 MMOL/L (135-145); TOTAL CARBON DIOXIDE 26.1 MMOL/L (24-32); TOTAL PROTEIN 7.8 G/DL (6.4-8.2); eGFR 48 ML/MIN
[2018-01-21 09:33] LABS: GLUCOSE 480 MG/DL (70-104)
[2018-01-21] MEDS ORDERED: morphine 4 MG/ML inj SYRINge IV ONE (09:40)
[2018-01-21 09:56] LABS: BASOPHILS % (AUTO) 0.3 % (0-1); EOSINOPHILS # (AUTO) 0.1 X10'3 (0-0.9); EOSINOPHILS % (AUTO) 1.1 % (0-6); HEMATOCRIT 31.9 % (35.0-45.0); HEMOGLOBIN 10.9 g/dl (12.0-16.0); LYMPHOCYTES # (AUTO) 0.8 X10'3 (1.1-4.8); LYMPHOCYTES % (AUTO) 11.8 % (21-51); MEAN CORPUSCULAR VOLUME 88.4 FL (78-98); MEAN PLATELET VOLUME 6.7 FL (7.4-10.4); MONOCYTES # (AUTO) 0.2 X10'3 (0-0.9); MONOCYTES % (AUTO) 2.7 % (2-12); NEUTROPHILS # (AUTO) 5.4 X10'3 (1.8-7.7); NEUTROPHILS % (AUTO) 84.1 % (42-75); PLATELET COUNT 326 X10'3 (140-440); RED BLOOD COUNT 3.61 X10'6 (4.20-5.60); RED CELL DISTRIBUTION WIDTH 14.3 % (11.5-14.5); WHITE BLOOD COUNT 6.4 X10'3 (4.5-11.0)
[2018-01-21] MEDS ORDERED: proCHLORperazine 10 MG/2 ml inj IV ONE (10:00)
[2018-01-21 10:06] LABS: URINE AMPHETAMINE SCREEN NEGATIVE (Neg); URINE BARBITUATE SCREEN NEGATIVE (Neg); URINE BENZODIAZEPINES SCREEN NEGATIVE (Neg); URINE CANNABINOID SCREEN NEGATIVE (Neg); URINE COCAINE SCREEN NEGATIVE (Neg); URINE METHADONE SCREEN NEGATIVE (Neg); URINE OPIATE SCREEN NEGATIVE (Neg); URINE PHENCYCLIDINE SCREEN NEGATIVE (Neg)
[2018-01-21 10:08] LABS: CLARITY,URINE SLIGHTLY CLOUDY (Clear); COLOR,URINE STRAW (Yellow); GLUCOSE, URINE >=1000 mg/dl (Neg); KETONES,URINE TRACE mg/dl (Neg); LEUKOCYTE ESTERASE ,URINE NEGATIVE (Neg); NITRITES, URINE NEGATIVE (Neg); OCCULT BLOOD,URINE MODERATE (Neg); PH,URINE 8.5 (4.8-8.0); PROTEIN,URINE NEGATIVE (Neg); UA COLLECTION TYPE CLN CATCH MIDSTREAM; UROBILINOGEN,URINE 0.2 E.U/dL (0.2-1.0)
[2018-01-21 10:23] LABS: SQUAMOUS EPITHELIAL CELL,UR MANY /LPF (FEW)
[2018-01-21 10:26] LABS: BACTERIA,URINE FEW /HPF (Neg); RBC,URINE 20-50 /HPF (0-2); WBC,URINE 0-4 /HPF (0-4)
[2018-01-21] MEDS ORDERED: hyDROXYzine 50 mg/ml injection ***IM only IM ONE (11:25)
[2018-01-21 13:40] VITALS: BP 159/74
== END 2018-01-21 13:41 | disposition home or self-care (01) ==
LOC: ER 08:23
DX: K85.90 Acute pancreatitis without necrosis or infection, unspecified (principal); E10.65 Type 1 diabetes mellitus with hyperglycemia; E10.42 Type 1 diabetes mellitus with diabetic polyneuropathy; Z88.0 Allergy status to penicillin; Z88.2 Allergy status to sulfonamides; Z88.1 Allergy status to other antibiotic agents; Z79.899 Other long term (current) drug therapy; Z79.4 Long term (current) use of insulin
CPT/HCPCS: 36415; 80053; 80305; 81001; 82948; 83690; 83735; 84703; 85025; 96361; 96372; 96374; 96375; 99283; J0780; J1200; J1815; J2270; J2405; J3410; J7030

== ENCOUNTER 2018-02-21 20:25 | Emergency (ER) | payer MEDICARE, MEDICAID ==
[~2018-02-21] VITALS: Ht 157.5 cm; Wt 59.0 kg
[~2018-02-21 20:25] MED LIST changes: -CIPR-230 PO
[2018-02-21] MEDS ORDERED: normal saline 1000ML IV soln IVB ONE (21:35)
[2018-02-21 22:05] LABS: CLARITY,URINE CLEAR (Clear); COLOR,URINE YELLOW (Yellow); GLUCOSE, URINE >=1000 mg/dl (Neg); KETONES,URINE NEGATIVE (Neg); LEUKOCYTE ESTERASE ,URINE NEGATIVE (Neg); NITRITES, URINE NEGATIVE (Neg); UROBILINOGEN,URINE 0.2 E.U/dL (0.2-1.0)
[2018-02-21 22:05] LABS: BASOPHILS % (AUTO) 0.5 % (0-1); EOSINOPHILS # (AUTO) 0.1 X10'3 (0-0.9); EOSINOPHILS % (AUTO) 1.6 % (0-6); HEMATOCRIT 34.9 % (35.0-45.0); HEMOGLOBIN 11.7 g/dl (12.0-16.0); LYMPHOCYTES # (AUTO) 2.1 X10'3 (1.1-4.8); LYMPHOCYTES % (AUTO) 35.9 % (21-51); MEAN CORPUSCULAR HEMOGLOBIN 29.2 PG (27.0-31.0); MEAN CORPUSCULAR HGB CONC 33.5 % (33.0-36.5); MEAN CORPUSCULAR VOLUME 87.2 FL (78-98); MEAN PLATELET VOLUME 7.3 FL (7.4-10.4); MONOCYTES # (AUTO) 0.3 X10'3 (0-0.9); MONOCYTES % (AUTO) 5.2 % (2-12); NEUTROPHILS # (AUTO) 3.3 X10'3 (1.8-7.7); NEUTROPHILS % (AUTO) 56.8 % (42-75); PLATELET COUNT 372 X10'3 (140-440); RED BLOOD COUNT 4.01 X10'6 (4.20-5.60); RED CELL DISTRIBUTION WIDTH 12.9 % (11.5-14.5); WHITE BLOOD COUNT 5.8 X10'3 (4.5-11.0)
[2018-02-21 22:07] LABS: URINE HCG NEGATIVE (NEG)
[2018-02-21 22:10] LABS: PROTEIN,URINE 30 mg/dl (Neg)
[2018-02-21 22:11] LABS: OCCULT BLOOD,URINE SMALL (Neg)
[2018-02-21 22:12] LABS: UA COLLECTION TYPE CLN CATCH MIDSTREAM
[2018-02-21 22:17] LABS: BACTERIA,URINE FEW /HPF (Neg); SQUAMOUS EPITHELIAL CELL,UR MANY /LPF (FEW); WBC,URINE 0-4 /HPF (0-4)
[2018-02-21 22:20] LABS: ALANINE AMINOTRANSFERASE 37 U/L (12-78); ALBUMIN/GLOBULIN RATIO 0.9 (1.1-1.5); ALKALINE PHOSPHATASE 115 IU/L (46-116); ANION GAP 9 (8-16); ASPARTATE AMINO TRANSFERASE 23 U/L (10-37); BILIRUBIN,TOTAL 0.3 MG/DL (0.1-1.0); BLOOD UREA NITROGEN 17 MG/DL (7-18); CALCIUM 9.2 MG/DL (8.5-10.1); CHLORIDE 98 MMOL/L (99-107); CREATININE 1.21 MG/DL (0.40-0.90); GLUCOSE 339 MG/DL (70-104); POTASSIUM 3.8 MMOL/L (3.5-5.1); SODIUM 136 MMOL/L (135-145); TOTAL CARBON DIOXIDE 29.5 MMOL/L (24-32); TOTAL PROTEIN 8.3 G/DL (6.4-8.2); eGFR 53 ML/MIN
[2018-02-21 22:23] LABS: LIPASE 1662 U/L (73-393)
[2018-02-21] MEDS ORDERED: magnesium citrate 296ml oral solution PO ONE (23:15)
[2018-02-22] MEDS ORDERED: CLIN150C2 PO (00:10)
[2018-02-22] MEDS ORDERED: METR500T PO (00:10)
[2018-02-22 00:14] VITALS: BP 138/82
[2018-02-22 02:16] LABS: OCCULT BLOOD STOOL NEGATIVE (Neg)
== END 2018-02-22 00:24 | disposition home or self-care (01) ==
LOC: ER 20:26
DX: K59.00 Constipation, unspecified (principal); K04.7 Periapical abscess without sinus; E11.42 Type 2 diabetes mellitus with diabetic polyneuropathy; Z90.49 Acquired absence of other specified parts of digestive tract; Z90.710 Acquired absence of both cervix and uterus; Z98.890 Other specified postprocedural states; Z88.0 Allergy status to penicillin; Z88.2 Allergy status to sulfonamides; Z88.1 Allergy status to other antibiotic agents; Z88.8 Allergy status to other drugs, medicaments and biological substances; Z79.4 Long term (current) use of insulin; Z79.899 Other long term (current) drug therapy
CPT/HCPCS: 36415; 74018; 74176; 80053; 81001; 81025; 82272; 83690; 85025; 99284; J7030

== ENCOUNTER 2018-02-28 15:53 | Inpatient (IN) | payer MEDICARE, MEDICAID | END 2018-03-02 15:30 | disposition home or self-care (01) | LOC: ED HOLD 03-01 02:21 → ER 15:53 → SUR 3N 03-01 05:00 | DX: R11.2 Nausea with vomiting, unspecified (principal); R41.82 Altered mental status, unspecified; E10.42 Type 1 diabetes mellitus with diabetic polyneuropathy ==

== ENCOUNTER 2018-04-09 16:05 | Inpatient (IN) | payer MEDICAID, MEDICARE ==
[~2018-04-09] VITALS: Ht 157.5 cm; Wt 53.0 kg
[~2018-04-09 16:05] MED LIST changes: -HYDR-4383 PO; +LISI-604 PO; +METO-292 PO; -ONDA4TAB12 PO
[2018-04-09 16:48] LABS: BASOPHILS # (AUTO) 0.1 X10'3 (0-0.2); BASOPHILS % (AUTO) 0.6 % (0-1); EOSINOPHILS % (AUTO) 0 % (0-6); HEMATOCRIT 36.9 % (35.0-45.0); HEMOGLOBIN 12.2 g/dl (12.0-16.0); LYMPHOCYTES # (AUTO) 0.7 X10'3 (1.1-4.8); LYMPHOCYTES % (AUTO) 7.6 % (21-51); MEAN CORPUSCULAR HEMOGLOBIN 28.4 PG (27.0-31.0); MEAN PLATELET VOLUME 7.7 FL (7.4-10.4); MONOCYTES # (AUTO) 0.2 X10'3 (0-0.9); MONOCYTES % (AUTO) 2.5 % (2-12); NEUTROPHILS # (AUTO) 8.2 X10'3 (1.8-7.7); NEUTROPHILS % (AUTO) 89.3 % (42-75); PLATELET COUNT 334 X10'3 (140-440); RED BLOOD COUNT 4.29 X10'6 (4.20-5.60); WHITE BLOOD COUNT 9.2 X10'3 (4.5-11.0)
[2018-04-09] MEDS ORDERED: ondansetron 4mg rapidly disintigrating tab PO ONE (16:55)
[2018-04-09] MEDS ORDERED: normal saline 1000ML IV soln IVB ONE ×2 (16:55→17:45)
[2018-04-09 16:59] LABS: ALANINE AMINOTRANSFERASE 48 U/L (12-78); ALBUMIN 4.3 G/DL (3.4-5.0); ALKALINE PHOSPHATASE 130 IU/L (46-116); AMYLASE 53 U/L (25-115); ANION GAP 20 (8-16); ASPARTATE AMINO TRANSFERASE 21 U/L (10-37); BILIRUBIN,TOTAL 0.8 MG/DL (0.1-1.0); BLOOD UREA NITROGEN 18 MG/DL (7-18); BUN/CREATININE RATIO 10.4 (6.6-38.0); CALCIUM 10.1 MG/DL (8.5-10.1); CHLORIDE 98 MMOL/L (99-107); CREATININE 1.73 MG/DL (0.40-0.90); LIPASE 219 U/L (73-393); POTASSIUM 4.3 MMOL/L (3.5-5.1); SODIUM 135 MMOL/L (135-145); TOTAL PROTEIN 8.5 G/DL (6.4-8.2); eGFR 35 ML/MIN
[2018-04-09 17:09] LABS: PROTHROMBIN TIME 10.2 SECONDS (9.0-12.0)
[2018-04-09] MEDS ORDERED: insulin regular, human 10 units/0.1 ml syringe IV ONE (17:10)
[2018-04-09 17:12] LABS: GLUCOSE 625 MG/DL (70-104)
[2018-04-09] MEDS ORDERED: proCHLORperazine 10 MG/2 ml inj IV ONE (17:20)
[2018-04-09 17:50] LABS: ABG BASE EXCESS -4.8 mmol/L (-2.0-3.0); ABG HCO3 17.7 mmol/L (22.0-26.0); ABG OXYGEN SATURATION 97.6 % (95-98); ABG PCO2 (T) 25.4 mmHg (32.0-45.0); ABG PO2 (T) 108.9 mmHg (83-108); ALLEN'S TEST Positive; FCOHb 0.3 % (0.5-1.5); FMetHb 0.1 % (0.3-1.12); FO2Hb 97.2 % (94-100); TOTAL HEMOGLOBIN 11.3 G/dl (12.0-16.0)
[2018-04-09 18:23] LABS: ETHANOL < 0.010 GM/DL (0.0-0.010)
[2018-04-09 18:52] LABS: CLARITY,URINE CLEAR (Clear); COLOR,URINE STRAW (Yellow); GLUCOSE, URINE >=1000 mg/dl (Neg); KETONES,URINE 40 mg/dl (Neg); LEUKOCYTE ESTERASE ,URINE NEGATIVE (Neg); NITRITES, URINE NEGATIVE (Neg); OCCULT BLOOD,URINE MODERATE (Neg); PROTEIN,URINE TRACE mg/dl (Neg); UROBILINOGEN,URINE 0.2 E.U/dL (0.2-1.0)
[2018-04-09 18:54] LABS: URINE HCG NEGATIVE (NEG)
[2018-04-09 18:58] LABS: UA COLLECTION TYPE STRAIGHT CATH
[2018-04-09 19:05] LABS: URINE AMPHETAMINE SCREEN NEGATIVE (Neg); URINE BARBITUATE SCREEN NEGATIVE (Neg); URINE BENZODIAZEPINES SCREEN NEGATIVE (Neg); URINE CANNABINOID SCREEN NEGATIVE (Neg); URINE COCAINE SCREEN NEGATIVE (Neg); URINE METHADONE SCREEN NEGATIVE (Neg); URINE OPIATE SCREEN NEGATIVE (Neg); URINE PHENCYCLIDINE SCREEN NEGATIVE (Neg)
[2018-04-09 19:18] LABS: BACTERIA,URINE FEW /HPF (Neg); SQUAMOUS EPITHELIAL CELL,UR FEW /LPF (FEW); WBC,URINE 0-4 /HPF (0-4)
[2018-04-09] MEDS ORDERED: INSU8CAR (19:30)
[2018-04-09] MEDS ORDERED: INSU4CAR (19:30)
[2018-04-09] MEDS ORDERED: mag hydrox/Alum hydrox/simeth 30ml oral suspension PO PRN (19:35)
[2018-04-09] MEDS ORDERED: magnesium 4gm in 100ml NS 100 ML IV PRN (19:35)
[2018-04-09] MEDS ORDERED: potassium Cl 20 mEq SR tablet PO PRN ×2 (19:35)
[2018-04-09] MEDS ORDERED: potassium Cl 40MEQ/NS 500ml 500 ML IV PRN ×2 (19:35)
[2018-04-09] MEDS ORDERED: magnesium hydroxide 30ml (MOM) UD suspension PO PRN (19:35)
[2018-04-09] MEDS ORDERED: magnesium 2GM in 50ml NS 50 ML IV PRN (19:35)
[2018-04-09] MEDS ORDERED: ondansetron/PF 4mg/2ml inj IV PRN (19:35)
[2018-04-09] MEDS ORDERED: magnesium Cl slow-release 64mg tablet PO PRN (19:35)
[2018-04-09] MEDS ORDERED: acetaminophen 325mg tablet PO PRN ×2 (19:35)
[2018-04-09] MEDS ORDERED: MULT-1074 PO (20:02)
[2018-04-09 20:08] LABS: ALBUMIN 3.5 G/DL (3.4-5.0); ANION GAP 14 (8-16); BLOOD UREA NITROGEN 16 MG/DL (7-18); BUN/CREATININE RATIO 12.9 (6.6-38.0); CALCIUM 9.1 MG/DL (8.5-10.1); CHLORIDE 109 MMOL/L (99-107); CREATININE 1.24 MG/DL (0.40-0.90); GLUCOSE 265 MG/DL (70-104); PHOSPHORUS 1.8 MG/DL (2.3-4.5); POTASSIUM 4.2 MMOL/L (3.5-5.1); SODIUM 144 MMOL/L (135-145); TOTAL CARBON DIOXIDE 21.2 MMOL/L (24-32); eGFR 51 ML/MIN
[2018-04-09] MEDS: heparin, porcine 5000 units/ml vial SQ SCH (20:25)
[2018-04-09] MEDS ORDERED: insulin glargine (Lantus) pen - multi-dose SQ ONE (20:30)
[2018-04-09] MEDS ORDERED: insulin regular, human 10 units/0.1 ml syringe IV STA (20:42)
[2018-04-09] MEDS ORDERED: insulin glargine (Lantus) pen - multi-dose SQ SCH (21:00)
[2018-04-09] MEDS ORDERED: dextrose ORAL solution 15 GM/59 ML bottle PO PRN ×2 (21:00)
[2018-04-09] MEDS ORDERED: MESSAGE TO PHARMACY PO ONE (21:00)
[2018-04-09] MEDS: hyDRALAzine 10mg tablet PO SCH (21:00)
[2018-04-09] MEDS ORDERED: glucagon, human recombinant 1mg kit SUBCUT PRN (21:00)
[2018-04-09] MEDS ORDERED: dextrose 50%-water 50ml dispensing syringe IV PRN ×2 (21:00)
[2018-04-09] MEDS: normal saline 1000ml 1,000 ML IV SCH (21:28)
--- NOTE | 2018-04-09 22:23 | NUR ---
Rec'd report from MARTA Mcclure in the ER.
[2018-04-09 22:50] VITALS: BP 152/78
--- NOTE | 2018-04-09 23:30 | NUR ---
Talked with Dr. Fuller as patient was somnolent, hadn't urinated and has a fever of 100.5. Per MD put a Lima cath in and start Levofloxin 500mg now and then daily.
[2018-04-09] MEDS: levoFLOXACIN-Levaquin 500mg/D5 100 ML IV SCH (23:57)
[2018-04-10] MEDS: hyDRALAzine 10mg tablet PO SCH ×3 (00:11→12:42)
[2018-04-10 00:12] VITALS: BP 160/95
[2018-04-10 01:46] LABS: ALBUMIN 3.5 G/DL (3.4-5.0); ANION GAP 13 (8-16); BLOOD UREA NITROGEN 17 MG/DL (7-18); BUN/CREATININE RATIO 12.5 (6.6-38.0); CHLORIDE 108 MMOL/L (99-107); CREATININE 1.36 MG/DL (0.40-0.90); GLUCOSE 255 MG/DL (70-104); MAGNESIUM 1.6 MG/DL (1.5-2.4); POTASSIUM 4.4 MMOL/L (3.5-5.1); SODIUM 141 MMOL/L (135-145); TOTAL CARBON DIOXIDE 20.4 MMOL/L (24-32); eGFR 46 ML/MIN
[2018-04-10 02:00] VITALS: BP 155/92
--- NOTE | 2018-04-10 02:50 | NUR ---
Cld Dr. Fuller with morning lab results and BG of 255. Per MD give patient 10units of regular insulin now and recheck again on morning schedule
[2018-04-10] MEDS ORDERED: insulin regular, human vial - multi-dose IV ONE (02:55)
[2018-04-10 03:21] LABS: EOSINOPHILS % (AUTO) 0.1 % (0-6); LYMPHOCYTES # (AUTO) 1.4 X10'3 (1.1-4.8); MONOCYTES # (AUTO) 0.5 X10'3 (0-0.9); NEUTROPHILS # (AUTO) 9.4 X10'3 (1.8-7.7); RED BLOOD COUNT 3.46 X10'6 (4.20-5.60)
[2018-04-10 03:22] LABS: BASOPHILS % (AUTO) 0.2 % (0-1); HEMATOCRIT 29.3 % (35.0-45.0); HEMOGLOBIN 10.1 g/dl (12.0-16.0); LYMPHOCYTES % (AUTO) 12.7 % (21-51); MEAN CORPUSCULAR HEMOGLOBIN 29.1 PG (27.0-31.0); MEAN CORPUSCULAR HGB CONC 34.4 g/dL (33.0-36.5); MEAN CORPUSCULAR VOLUME 84.8 FL (78-98); MEAN PLATELET VOLUME 7.4 FL (7.4-10.4); MONOCYTES % (AUTO) 4.2 % (2-12); NEUTROPHILS % (AUTO) 82.8 % (42-75); RED CELL DISTRIBUTION WIDTH 13.4 % (11.5-14.5); WHITE BLOOD COUNT 11.3 X10'3 (4.5-11.0)
--- NOTE | 2018-04-10 04:44 | NUR ---
Patient is more alert and interacting with staff now.
[2018-04-10 06:00] VITALS: BP 158/89
[2018-04-10] MEDS: normal saline 1000ml 1,000 ML IV SCH (06:57)
[2018-04-10] MEDS ORDERED: hydrALAZINE 20mg/ml inj. IV PRN (07:10)
[2018-04-10] MEDS ORDERED: multivitamins, therapeutics tablet PO SCH (08:00)
[2018-04-10] MEDS ORDERED: K and/or MAG REPLACEMENT MC SCH (08:00)
[2018-04-10] MEDS ORDERED: gabapentin 400mg capsule PO SCH (08:00)
[2018-04-10] MEDS: heparin, porcine 5000 units/ml vial SQ SCH (08:49)
[2018-04-10] MEDS: levoFLOXACIN-Levaquin 500mg/D5 100 ML IV SCH (08:51)
[2018-04-10] MEDS: gabapentin 100mg capsule PO SCH ×2 (08:51→12:42)
[2018-04-10] MEDS: insulin Lispro (HumaLOG) vial - multi-dose SQ SCH ×2 (08:58→12:41)
[2018-04-10] MEDS ORDERED: LEVO500T2 PO (10:17)
[2018-04-10] MEDS ORDERED: INSU100C10 SQ (10:56)
[2018-04-10] MEDS ORDERED: INSU1CAR11 INH ×2 (10:58→11:00)
[2018-04-10] MEDS ORDERED: INSU100V9 SQ (11:00)
[2018-04-10] MEDS ORDERED: HYDROcodone/acetaminophen 5mg/325mg tablet PO ONE (11:20)
--- NOTE | 2018-04-10 11:22 | NUR ---
PAGER ID: [phone] MESSAGE: Jefe [id number]. Med rec with insulin is done. Kenyatta [id number]
[2018-04-10] MEDS ORDERED: non-formulary drug (Insulin Lispro (Humalog) 1 UNITS) SQ PRN (11:25)
[2018-04-10] MEDS ORDERED: OMEP20TA23 PO (11:30)
[2018-04-10] MEDS ORDERED: LOSA50TA64 PO (11:34)
[2018-04-10] MEDS ORDERED: losartan 25mg tablet PO SCH (11:35)
[2018-04-10] MEDS ORDERED: sodium phosphate inj. 15 MMOL in dextrose 5%-water 150 ML IV STA (11:37)
[2018-04-10] MEDS ORDERED: Neutra Phos packet PO ONE (12:25)
--- NOTE | 2018-04-10 14:57 | NUR ---
Rm 3015B, Christina. Phos level is 3.2. would you like to discharge now? Kenyatta 2804
--- NOTE | 2018-04-10 15:46 | NUR ---
DM Consult: Pt admit w/ mild DKA A1C 12.3 hx recent urinary infection and N/V for few days prior to admit per pt. Pt seen by RD on prior admit in February 2018 for DKA r/t pt insulin pump getting recalled and changed to injections. 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 DKA likely combination of prior illness and N/V worsening. Pt declined written DM ed since still has prior but accepted RD contact information. Pending d/c at this time. PO 30# avg carbs only documented in EMR w/ no BM yet this admit. Will continue to monitor for ONS needs if d/c prolonged. Rec: 1. continue carb controlled diet 2. monitor for ONS needs 3. reglan per MD for hx gastroparesis 4. wt per rx Addendum: 04/10/18 at [address] Amended: Links added.
--- NOTE | 2018-04-10 17:00 | NUR ---
Pt discharged at 1630, PIV and Telemetry removed with no issues. Pt reviewed discharge instructions and packet before signing, Rx called in. Belongings sent with patient, and patient wheeled down by staff. Patient left via private vehicle with family.
[2018-04-10] MEDS ORDERED: non-formulary drug (Insulin Glargine,Hum.rec.anlog (Lantus) 20 UNIT) SQ SCH (21:00)
== END 2018-04-10 16:40 | disposition home or self-care (01) | DRG 420 ==
LOC: ER 16:06 → ED HOLD 19:41 → EDBEDREQ 21:44 → CMPBEDREQ 22:31 → PCU 3S 22:32
PROVIDERS: ADMIT Hospitalist; ATTEND Internal Medicine
DX: E10.10 Type 1 diabetes mellitus with ketoacidosis without coma (principal); N17.9 Acute kidney failure, unspecified; K31.84 Gastroparesis; E10.42 Type 1 diabetes mellitus with diabetic polyneuropathy; E83.39 Other disorders of phosphorus metabolism; E86.0 Dehydration; E10.43 Type 1 diabetes mellitus with diabetic autonomic (poly)neuropathy; I10 Essential (primary) hypertension; F17.220 Nicotine dependence, chewing tobacco, uncomplicated; R50.9 Fever, unspecified; J20.9 Acute bronchitis, unspecified; K29.00 Acute gastritis without bleeding; Z83.3 Family history of diabetes mellitus; Z88.0 Allergy status to penicillin; Z79.899 Other long term (current) drug therapy; Z88.1 Allergy status to other antibiotic agents; Z88.2 Allergy status to sulfonamides; Z88.8 Allergy status to other drugs, medicaments and biological substances; Z90.49 Acquired absence of other specified parts of digestive tract
CPT/HCPCS: 36415; 36600; 71045; 80048; 80053; 80305; 80320; 81001; 81025; 82009; 82150; 82803; 82948; 83690; 83735; 84100; 85018; 85025; 85610; 87070; 96361; 96374; 96375; 99285; G0378; J0780; J1644; J1815; J1956; J2405; J7030; J7060

== ENCOUNTER 2018-04-13 06:22 | Emergency (ER) | payer MEDICAID ==
[~2018-04-13] VITALS: Ht 157.5 cm; Wt 56.0 kg
[~2018-04-13 06:22] MED LIST changes: -GABA-532 PO; +INSU100C10 SQ; -INSU100V11 SQ; +INSU100V9 SQ; +INSU1CAR11 INH; -LANTUS SQ; +LEVO500T2 PO; -LISI-604 PO; +LOSA50TA64 PO; -METO-292 PO; +MULT-1074 PO; -MULT-38 PO; +OMEP20TA23 PO; -ONDA8TAB6 PO
[2018-04-13] MEDS ORDERED: normal saline 1000ML IV soln IVB ONE ×2 (06:50)
[2018-04-13] MEDS ORDERED: insulin regular, human 10 units/0.1 ml syringe IV ONE (06:50)
[2018-04-13] MEDS ORDERED: ondansetron/PF 4mg/2ml inj IV ONE (06:50)
[2018-04-13 07:12] LABS: URINE HCG NEGATIVE (NEG)
[2018-04-13 07:16] LABS: CLARITY,URINE CLEAR (Clear); COLOR,URINE YELLOW (Yellow); GLUCOSE, URINE >=1000 mg/dl (Neg); KETONES,URINE NEGATIVE (Neg); LEUKOCYTE ESTERASE ,URINE NEGATIVE (Neg); NITRITES, URINE NEGATIVE (Neg); OCCULT BLOOD,URINE SMALL (Neg); PH,URINE 7.5 (4.8-8.0); PROTEIN,URINE NEGATIVE (Neg); UA COLLECTION TYPE NON-SPECIFIED; UROBILINOGEN,URINE 0.2 E.U/dL (0.2-1.0)
[2018-04-13 07:30] LABS: BACTERIA,URINE FEW /HPF (Neg); MUCUS STRANDS NONE SEEN /LPF (Neg); SQUAMOUS EPITHELIAL CELL,UR MODERATE /LPF (FEW); WBC,URINE 0-4 /HPF (0-4)
[2018-04-13] MEDS ORDERED: GABA-532 PO (07:38)
[2018-04-13 08:22] LABS: ALANINE AMINOTRANSFERASE 31 U/L (12-78); ALBUMIN 4.1 G/DL (3.4-5.0); ALBUMIN/GLOBULIN RATIO 1.1 (1.1-1.5); ALKALINE PHOSPHATASE 106 IU/L (46-116); ANION GAP 8 (8-16); ASPARTATE AMINO TRANSFERASE 23 U/L (10-37); BILIRUBIN,TOTAL 0.3 MG/DL (0.1-1.0); BLOOD UREA NITROGEN 10 MG/DL (7-18); BUN/CREATININE RATIO 8.1 (6.6-38.0); CALCIUM 10.1 MG/DL (8.5-10.1); CHLORIDE 97 MMOL/L (99-107); CREATININE 1.23 MG/DL (0.40-0.90); LIPASE 368 U/L (73-393); POTASSIUM 4.7 MMOL/L (3.5-5.1); SODIUM 133 MMOL/L (135-145); TOTAL CARBON DIOXIDE 27.9 MMOL/L (24-32); eGFR 52 ML/MIN
[2018-04-13 08:31] LABS: GLUCOSE 539 MG/DL (70-104)
[2018-04-13] MEDS ORDERED: fentaNYL/PF 50MCG/1 ML 2ML syringe IV ONE (09:00)
[2018-04-13 09:33] LABS: BASOPHILS % (AUTO) 0.6 % (0-1); EOSINOPHILS # (AUTO) 0.1 X10'3 (0-0.9); EOSINOPHILS % (AUTO) 1.8 % (0-6); HEMATOCRIT 32.6 % (35.0-45.0); HEMOGLOBIN 10.6 g/dl (12.0-16.0); LYMPHOCYTES # (AUTO) 1.5 X10'3 (1.1-4.8); LYMPHOCYTES % (AUTO) 34.9 % (21-51); MEAN CORPUSCULAR HEMOGLOBIN 28.2 PG (27.0-31.0); MEAN CORPUSCULAR HGB CONC 32.6 g/dL (33.0-36.5); MEAN CORPUSCULAR VOLUME 86.3 FL (78-98); MEAN PLATELET VOLUME 7.4 FL (7.4-10.4); MONOCYTES # (AUTO) 0.5 X10'3 (0-0.9); MONOCYTES % (AUTO) 10.3 % (2-12); NEUTROPHILS # (AUTO) 2.3 X10'3 (1.8-7.7); NEUTROPHILS % (AUTO) 52.4 % (42-75); PLATELET COUNT 266 X10'3 (140-440); RED BLOOD COUNT 3.77 X10'6 (4.20-5.60); RED CELL DISTRIBUTION WIDTH 13.9 % (11.5-14.5); WHITE BLOOD COUNT 4.4 X10'3 (4.5-11.0)
[2018-04-13 11:02] VITALS: BP 173/115
== END 2018-04-13 11:18 | disposition home or self-care (01) ==
LOC: ER 06:24
DX: S90.32XA Contusion of left foot, initial encounter (principal); S09.90XA Unspecified injury of head, initial encounter; E11.42 Type 2 diabetes mellitus with diabetic polyneuropathy; E11.65 Type 2 diabetes mellitus with hyperglycemia; I10 Essential (primary) hypertension; Z90.49 Acquired absence of other specified parts of digestive tract; Z98.890 Other specified postprocedural states; Z88.0 Allergy status to penicillin; Z88.2 Allergy status to sulfonamides; Z88.1 Allergy status to other antibiotic agents; Z79.4 Long term (current) use of insulin; Z79.899 Other long term (current) drug therapy; W19.XXXA Unspecified fall, initial encounter; Y93.89 Activity, other specified; Y92.89 Other specified places as the place of occurrence of the external cause; Y99.8 Other external cause status
CPT/HCPCS: 36415; 73630; 80053; 81001; 81025; 82948; 83690; 85025; 96361; 96374; 96375; 99284; J1815; J2405; J3010; J7030

== ENCOUNTER 2018-05-12 11:09 | Emergency (ER) | payer MEDICARE, MEDICAID ==
[~2018-05-12] VITALS: Ht 157.5 cm; Wt 57.0 kg
[~2018-05-12 11:09] MED LIST changes: +GABA-532 PO; -LEVO500T2 PO
[2018-05-12] MEDS ORDERED: normal saline 1000ml 1,000 ML IV SCH (11:57)
[2018-05-12] MEDS ORDERED: metoclopramide 5 mg/ml inj IV ONE (12:00)
[2018-05-12 12:26] LABS: BASOPHILS % (AUTO) 0.7 % (0-1); EOSINOPHILS # (AUTO) 0.1 X10'3 (0-0.9); EOSINOPHILS % (AUTO) 2.4 % (0-6); HEMATOCRIT 35.6 % (35.0-45.0); HEMOGLOBIN 11.9 g/dl (12.0-16.0); LYMPHOCYTES # (AUTO) 1.9 X10'3 (1.1-4.8); LYMPHOCYTES % (AUTO) 38.9 % (21-51); MEAN CORPUSCULAR HEMOGLOBIN 27.9 PG (27.0-31.0); MEAN CORPUSCULAR HGB CONC 33.4 g/dL (33.0-36.5); MEAN CORPUSCULAR VOLUME 83.5 FL (78-98); MEAN PLATELET VOLUME 7.2 FL (7.4-10.4); MONOCYTES # (AUTO) 0.4 X10'3 (0-0.9); MONOCYTES % (AUTO) 7.3 % (2-12); NEUTROPHILS # (AUTO) 2.5 X10'3 (1.8-7.7); NEUTROPHILS % (AUTO) 50.7 % (42-75); PLATELET COUNT 295 X10'3 (140-440); RED BLOOD COUNT 4.26 X10'6 (4.20-5.60); RED CELL DISTRIBUTION WIDTH 14.1 % (11.5-14.5)
[2018-05-12 12:42] LABS: ALBUMIN 4.5 G/DL (3.4-5.0); ANION GAP 7 (8-16); BLOOD UREA NITROGEN 22 MG/DL (7-18); BUN/CREATININE RATIO 17.2 (6.6-38.0); CALCIUM 10.1 MG/DL (8.5-10.1); CHLORIDE 102 MMOL/L (99-107); CREATININE 1.28 MG/DL (0.40-0.90); GLUCOSE 118 MG/DL (70-104); HCG SERUM QL NEGATIVE; PHOSPHORUS 3.1 MG/DL (2.3-4.5); SODIUM 138 MMOL/L (135-145); TOTAL CARBON DIOXIDE 29.3 MMOL/L (24-32); eGFR 49 ML/MIN
[2018-05-12 12:43] LABS: POTASSIUM 4.1 MMOL/L (3.5-5.1)
[2018-05-12 12:46] LABS: ALBUMIN 4.6 G/DL (3.4-5.0); ANION GAP 8 (8-16); BLOOD UREA NITROGEN 22 MG/DL (7-18); BUN/CREATININE RATIO 17.1 (6.6-38.0); CALCIUM 10.1 MG/DL (8.5-10.1); CHLORIDE 101 MMOL/L (99-107); CREATININE 1.29 MG/DL (0.40-0.90); GLUCOSE 118 MG/DL (70-104); PHOSPHORUS 3.1 MG/DL (2.3-4.5); SODIUM 138 MMOL/L (135-145); TOTAL CARBON DIOXIDE 29.4 MMOL/L (24-32); eGFR 49 ML/MIN
[2018-05-12] MEDS ORDERED: diphenhydrAMINE 50 mg/ml inj IV ONE (12:55)
[2018-05-12] MEDS ORDERED: morphine 4 MG/ML inj SYRINge IV ONE (12:55)
[2018-05-12 13:16] VITALS: BP 133/84
[2018-05-12 13:25] LABS: ABG BASE EXCESS -1.1 mmol/L (-2.0-3.0); ABG HCO3 23.6 mmol/L (22.0-26.0); ABG OXYGEN SATURATION 97.5 % (95-98); ABG PCO2 (T) 39.5 mmHg (32.0-45.0); ABG PH (T) 7.395 (7.350-7.450); ABG PO2 (T) 111.4 mmHg (83-108); ALLEN'S TEST Positive; FCOHb 0.3 % (0.5-1.5); FMetHb 0.1 % (0.3-1.12); FO2Hb 97.1 % (94-100); TOTAL HEMOGLOBIN 11.1 G/dl (12.0-16.0)
[2018-05-12] MEDS ORDERED: INSU100V9 SQ (13:27)
== END 2018-05-12 13:54 | disposition home or self-care (01) ==
LOC: ER 11:10
DX: E10.65 Type 1 diabetes mellitus with hyperglycemia (principal); R10.30 Lower abdominal pain, unspecified; E10.42 Type 1 diabetes mellitus with diabetic polyneuropathy; Z90.49 Acquired absence of other specified parts of digestive tract; Z98.890 Other specified postprocedural states; Z88.0 Allergy status to penicillin; Z91.14 Patient's other noncompliance with medication regimen; Z88.2 Allergy status to sulfonamides; Z88.1 Allergy status to other antibiotic agents; Z79.4 Long term (current) use of insulin; Z79.899 Other long term (current) drug therapy
CPT/HCPCS: 36415; 36600; 80048; 82803; 82948; 84100; 84703; 85018; 85025; 93005; 96361; 96374; 96375; 99284; J1200; J2270; J2765; J7030

== ENCOUNTER 2018-05-21 19:14 | Emergency (ER) | payer MEDICARE, MEDICAID ==
[~2018-05-21] VITALS: Ht 157.5 cm; Wt 59.1 kg
[2018-05-21 19:57] VITALS: BP 134/97
[2018-05-21 20:42] LABS: CLARITY,URINE CLEAR (Clear); COLOR,URINE YELLOW (Yellow); GLUCOSE, URINE >=1000 mg/dl (Neg); KETONES,URINE NEGATIVE (Neg); LEUKOCYTE ESTERASE ,URINE NEGATIVE (Neg); NITRITES, URINE NEGATIVE (Neg); OCCULT BLOOD,URINE SMALL (Neg); PROTEIN,URINE 30 mg/dl (Neg); UROBILINOGEN,URINE 0.2 E.U/dL (0.2-1.0)
[2018-05-21 20:43] LABS: URINE HCG NEGATIVE (NEG)
[2018-05-21 20:55] LABS: BASOPHILS % (AUTO) 0.5 % (0-1); EOSINOPHILS % (AUTO) 0.8 % (0-6); HEMOGLOBIN 11.1 g/dl (12.0-16.0); LYMPHOCYTES # (AUTO) 1.8 X10'3 (1.1-4.8); LYMPHOCYTES % (AUTO) 30.9 % (21-51); MEAN CORPUSCULAR HEMOGLOBIN 28.6 PG (27.0-31.0); MEAN CORPUSCULAR HGB CONC 34.6 g/dL (33.0-36.5); MEAN CORPUSCULAR VOLUME 82.6 FL (78-98); MEAN PLATELET VOLUME 7.2 FL (7.4-10.4); MONOCYTES # (AUTO) 0.5 X10'3 (0-0.9); MONOCYTES % (AUTO) 8.5 % (2-12); NEUTROPHILS # (AUTO) 3.4 X10'3 (1.8-7.7); NEUTROPHILS % (AUTO) 59.3 % (42-75); PLATELET COUNT 342 X10'3 (140-440); RED BLOOD COUNT 3.87 X10'6 (4.20-5.60); WHITE BLOOD COUNT 5.7 X10'3 (4.5-11.0)
[2018-05-21 20:56] LABS: UA COLLECTION TYPE CLN CATCH MIDSTREAM
[2018-05-21 20:57] LABS: BACTERIA,URINE FEW /HPF (Neg); SQUAMOUS EPITHELIAL CELL,UR MANY /LPF (FEW); WBC,URINE 0-4 /HPF (0-4)
[2018-05-21 21:00] LABS: PROTHROMBIN TIME 10.2 SECONDS (9.0-12.0)
[2018-05-21 21:02] LABS: ALANINE AMINOTRANSFERASE 49 U/L (12-78); ALBUMIN/GLOBULIN RATIO 1.1 (1.1-1.5); ALKALINE PHOSPHATASE 90 IU/L (46-116); ANION GAP 9 (8-16); ASPARTATE AMINO TRANSFERASE 21 U/L (10-37); BILIRUBIN,TOTAL 0.5 MG/DL (0.1-1.0); BLOOD UREA NITROGEN 17 MG/DL (7-18); BUN/CREATININE RATIO 14.2 (6.6-38.0); CALCIUM 9.8 MG/DL (8.5-10.1); CHLORIDE 106 MMOL/L (99-107); GLUCOSE 222 MG/DL (70-104); SODIUM 144 MMOL/L (135-145); TOTAL CARBON DIOXIDE 28.9 MMOL/L (24-32); TOTAL PROTEIN 7.7 G/DL (6.4-8.2); eGFR 53 ML/MIN
== END 2018-05-21 22:44 | disposition left against medical advice (07) ==
LOC: ER 19:15
DX: E10.9 Type 1 diabetes mellitus without complications (principal); R11.2 Nausea with vomiting, unspecified; E86.0 Dehydration; Z53.21 Procedure and treatment not carried out due to patient leaving prior to being seen by health care provider
CPT/HCPCS: 36415; 80053; 81001; 81025; 82948; 85025; 85610

== ENCOUNTER 2018-05-25 06:12 | Emergency (ER) | payer MEDICARE, MEDICAID ==
[~2018-05-25] VITALS: Ht 157.5 cm; Wt 40.3 kg
[2018-05-25] MEDS ORDERED: ondansetron/PF 4mg/2ml inj IV ONE (06:45)
[2018-05-25] MEDS ORDERED: normal saline 1000ML IV soln IVB ONE (06:45)
[2018-05-25 07:01] LABS: CLARITY,URINE SLIGHTLY CLOUDY (Clear); COLOR,URINE STRAW (Yellow); GLUCOSE, URINE >=1000 mg/dl (Neg); KETONES,URINE 15 mg/dl (Neg); LEUKOCYTE ESTERASE ,URINE NEGATIVE (Neg); NITRITES, URINE NEGATIVE (Neg); OCCULT BLOOD,URINE MODERATE (Neg); PH,URINE 5.5 (4.8-8.0); PROTEIN,URINE NEGATIVE (Neg); UROBILINOGEN,URINE 0.2 E.U/dL (0.2-1.0)
[2018-05-25 07:02] LABS: URINE HCG NEGATIVE (NEG)
[2018-05-25 07:09] LABS: UA COLLECTION TYPE CLN CATCH MIDSTREAM
[2018-05-25 07:10] LABS: BACTERIA,URINE FEW /HPF (Neg); MUCUS STRANDS NONE SEEN /LPF (Neg); SQUAMOUS EPITHELIAL CELL,UR MODERATE /LPF (FEW); WBC,URINE 0-4 /HPF (0-4)
[2018-05-25 07:26] LABS: BASOPHILS % (AUTO) 0.7 % (0-1); EOSINOPHILS % (AUTO) 0.3 % (0-6); HEMATOCRIT 28.5 % (35.0-45.0); HEMOGLOBIN 9.8 g/dl (12.0-16.0); LYMPHOCYTES # (AUTO) 1.9 X10'3 (1.1-4.8); LYMPHOCYTES % (AUTO) 32.2 % (21-51); MEAN CORPUSCULAR HEMOGLOBIN 28.4 PG (27.0-31.0); MEAN CORPUSCULAR HGB CONC 34.5 g/dL (33.0-36.5); MEAN CORPUSCULAR VOLUME 82.4 FL (78-98); MEAN PLATELET VOLUME 6.8 FL (7.4-10.4); MONOCYTES # (AUTO) 0.6 X10'3 (0-0.9); MONOCYTES % (AUTO) 9.3 % (2-12); NEUTROPHILS # (AUTO) 3.4 X10'3 (1.8-7.7); NEUTROPHILS % (AUTO) 57.5 % (42-75); PLATELET COUNT 381 X10'3 (140-440); RED BLOOD COUNT 3.46 X10'6 (4.20-5.60); RED CELL DISTRIBUTION WIDTH 13.6 % (11.5-14.5); WHITE BLOOD COUNT 5.9 X10'3 (4.5-11.0)
[2018-05-25 07:40] LABS: ALANINE AMINOTRANSFERASE 33 U/L (12-78); ALBUMIN 3.6 G/DL (3.4-5.0); ALBUMIN/GLOBULIN RATIO 1.1 (1.1-1.5); ALKALINE PHOSPHATASE 84 IU/L (46-116); ANION GAP 10 (8-16); ASPARTATE AMINO TRANSFERASE 13 U/L (10-37); BILIRUBIN,TOTAL 0.5 MG/DL (0.1-1.0); BLOOD UREA NITROGEN 21 MG/DL (7-18); BUN/CREATININE RATIO 17.4 (6.6-38.0); CALCIUM 9.6 MG/DL (8.5-10.1); CHLORIDE 100 MMOL/L (99-107); CREATININE 1.21 MG/DL (0.40-0.90); GLUCOSE 330 MG/DL (70-104); LIPASE 311 U/L (73-393); POTASSIUM 3.6 MMOL/L (3.5-5.1); SODIUM 135 MMOL/L (135-145); TOTAL CARBON DIOXIDE 25.4 MMOL/L (24-32); eGFR 53 ML/MIN
[2018-05-25] MEDS ORDERED: fentaNYL/PF 50MCG/1 ML 2ML syringe IV ONE (07:40)
[2018-05-25] MEDS ORDERED: insulin regular, human 10 units/0.1 ml syringe IV ONE (07:50)
--- NOTE | 2018-05-25 07:55 | NUR ---
dr. lainez at bedside.
[2018-05-25] MEDS ORDERED: PROC-8 PO (07:58)
[2018-05-25 08:08] VITALS: BP 178/102
== END 2018-05-25 08:10 | disposition home or self-care (01) ==
LOC: ER 06:13
DX: E11.65 Type 2 diabetes mellitus with hyperglycemia (principal); R11.2 Nausea with vomiting, unspecified; E11.42 Type 2 diabetes mellitus with diabetic polyneuropathy; Z90.49 Acquired absence of other specified parts of digestive tract; Z98.890 Other specified postprocedural states; Z88.0 Allergy status to penicillin; Z88.2 Allergy status to sulfonamides; Z88.1 Allergy status to other antibiotic agents; Z88.6 Allergy status to analgesic agent; Z79.4 Long term (current) use of insulin; Z79.899 Other long term (current) drug therapy
CPT/HCPCS: 36415; 80053; 81001; 81025; 82948; 83690; 85025; 96361; 96374; 96375; 99284; J2405; J3010; J7030

== ENCOUNTER 2018-09-05 01:42 | Emergency (ER) | payer MEDICARE, MEDICAID ==
[~2018-09-05] VITALS: Ht 157.5 cm; Wt 56.8 kg
[~2018-09-05 01:42] MED LIST changes: +PROC-8 PO
--- NOTE | 2018-09-05 02:05 | NUR ---
PT HAVING XRAY OF THE LEFT HAND
--- NOTE | 2018-09-05 02:40 | NUR ---
PATIENTS HAND LEFT HAND SWOLLEN WITH [address] FING[address] ONE RING IS ON THE MIDDLE FINGER AND THE OTHER 2 ARE ON THE RING FINGER. ATTEMPTING TO REMOVE RINGS WITH LUBICANTS TO AVOID INCREASED SWELLING AND DISCOMFORT.
--- NOTE | 2018-09-05 02:55 | NUR ---
RING OFF THE DIGETS. JEWERLY GIVEN TO PATIENT
[2018-09-05] MEDS ORDERED: ACET-3068 PO (03:07)
--- NOTE | 2018-09-05 03:26 | NUR ---
EMT PLACED DIGET IMMOBLIZER TO MIDDLE DIGET
[2018-09-05 03:37] VITALS: BP 162/99
== END 2018-09-05 03:30 | disposition home or self-care (01) ==
LOC: ER 01:42
DX: M79.645 Pain in left finger(s) (principal); E11.9 Type 2 diabetes mellitus without complications; Z90.49 Acquired absence of other specified parts of digestive tract; Z98.890 Other specified postprocedural states; Z88.0 Allergy status to penicillin; Z88.2 Allergy status to sulfonamides; Z88.1 Allergy status to other antibiotic agents; Z88.6 Allergy status to analgesic agent; Z79.4 Long term (current) use of insulin; Z79.899 Other long term (current) drug therapy
CPT/HCPCS: 29130; 73130; 99283

== ENCOUNTER 2018-11-15 00:22 | Emergency (ER) | payer MEDICARE, MEDICAID ==
[~2018-11-15] VITALS: Ht 157.5 cm; Wt 59.1 kg
[2018-11-15] MEDS ORDERED: normal saline 1000ML IV soln IVB ONE ×2 (00:35→01:00)
[2018-11-15] MEDS ORDERED: ondansetron/PF 4mg/2ml inj IV ONE (01:00)
[2018-11-15 01:03] LABS: BASOPHILS # (AUTO) 0.1 X10'3 (0-0.2); EOSINOPHILS # (AUTO) 0.1 X10'3 (0-0.9); LYMPHOCYTES # (AUTO) 1.8 X10'3 (1.1-4.8); MONOCYTES # (AUTO) 0.4 X10'3 (0-0.9); NEUTROPHILS # (AUTO) 3.2 X10'3 (1.8-7.7)
[2018-11-15 01:04] LABS: BASOPHILS % (AUTO) 1.4 % (0-1); HEMOGLOBIN 10.2 g/dl (12.0-16.0); LYMPHOCYTES % (AUTO) 32.3 % (21-51); MEAN CORPUSCULAR HEMOGLOBIN 27.8 PG (27.0-31.0); MEAN CORPUSCULAR HGB CONC 34.1 g/dL (33.0-36.5); MEAN CORPUSCULAR VOLUME 81.4 FL (78-98); MEAN PLATELET VOLUME 7.8 FL (7.4-10.4); MONOCYTES % (AUTO) 6.8 % (2-12); NEUTROPHILS % (AUTO) 58.5 % (42-75); PLATELET COUNT 360 X10'3 (140-440); RED BLOOD COUNT 3.69 X10'6 (4.20-5.60); RED CELL DISTRIBUTION WIDTH 14.9 % (11.5-14.5); WHITE BLOOD COUNT 5.5 X10'3 (4.5-11.0)
[2018-11-15] MEDS ORDERED: morphine 4 MG/ML inj SYRINge IV ONE ×2 (01:05→02:40)
[2018-11-15 01:38] LABS: ALANINE AMINOTRANSFERASE 27 U/L (12-78); ALBUMIN 4.1 G/DL (3.4-5.0); ALKALINE PHOSPHATASE 93 IU/L (46-116); ANION GAP 8 (8-16); ASPARTATE AMINO TRANSFERASE 25 U/L (10-37); BILIRUBIN,TOTAL 0.4 MG/DL (0.1-1.0); BLOOD UREA NITROGEN 20 MG/DL (7-18); BUN/CREATININE RATIO 12.6 (6.6-38.0); CALCIUM 9.3 MG/DL (8.5-10.1); CHLORIDE 102 MMOL/L (99-107); CREATININE 1.59 MG/DL (0.40-0.90); GLUCOSE 301 MG/DL (70-104); SODIUM 138 MMOL/L (135-145); TOTAL CARBON DIOXIDE 28.1 MMOL/L (24-32); TOTAL PROTEIN 8.3 G/DL (6.4-8.2); eGFR 38 ML/MIN
[2018-11-15 02:00] LABS: URINE HCG NEGATIVE (NEG)
[2018-11-15 02:04] LABS: COLOR,URINE YELLOW (Yellow); GLUCOSE, URINE >=1000 mg/dl (Neg); KETONES,URINE NEGATIVE (Neg); LEUKOCYTE ESTERASE ,URINE NEGATIVE (Neg); NITRITES, URINE NEGATIVE (Neg); OCCULT BLOOD,URINE SMALL (Neg); PH,URINE 8.5 (4.8-8.0); PROTEIN,URINE TRACE mg/dl (Neg); UROBILINOGEN,URINE 0.2 E.U/dL (0.2-1.0)
[2018-11-15 02:09] LABS: CLARITY,URINE SLIGHTLY CLOUDY (Clear); UA COLLECTION TYPE CLN CATCH MIDSTREAM
[2018-11-15 02:10] LABS: WBC,URINE 0-4 /HPF (0-4)
[2018-11-15 02:11] LABS: BACTERIA,URINE FEW /HPF (Neg); SQUAMOUS EPITHELIAL CELL,UR MANY /LPF (FEW)
[2018-11-15 03:22] VITALS: BP 187/97
== END 2018-11-15 03:15 | disposition home or self-care (01) ==
LOC: ER 00:23
DX: E11.65 Type 2 diabetes mellitus with hyperglycemia (principal); M25.512 Pain in left shoulder; E86.0 Dehydration; R11.10 Vomiting, unspecified; E11.42 Type 2 diabetes mellitus with diabetic polyneuropathy; Z88.0 Allergy status to penicillin; Z88.2 Allergy status to sulfonamides; Z88.1 Allergy status to other antibiotic agents; Z88.8 Allergy status to other drugs, medicaments and biological substances; Z88.6 Allergy status to analgesic agent; Z79.899 Other long term (current) drug therapy; Z79.4 Long term (current) use of insulin; Z87.19 Personal history of other diseases of the digestive system; Z90.49 Acquired absence of other specified parts of digestive tract; Z98.890 Other specified postprocedural states
CPT/HCPCS: 36415; 80053; 81001; 81025; 82009; 82948; 85025; 96361; 96374; 96375; 96376; 99283; J2270; J2405; J7030

== ENCOUNTER 2018-12-07 14:40 | Emergency (ER) | payer MEDICARE, MEDICAID ==
[~2018-12-07] VITALS: Ht 157.5 cm; Wt 61.3 kg
[2018-12-07] MEDS ORDERED: fentaNYL/PF 50MCG/1 ML 2ML syringe IV ONE (15:55)
[2018-12-07] MEDS ORDERED: normal saline 1000ML IV soln IVB ONE (15:55)
[2018-12-07] MEDS ORDERED: ondansetron/PF 4mg/2ml inj IV ONE (15:55)
[2018-12-07 16:24] LABS: ALANINE AMINOTRANSFERASE 19 U/L (12-78); ALBUMIN 3.4 G/DL (3.4-5.0); ALBUMIN/GLOBULIN RATIO 0.9 (1.1-1.5); ALKALINE PHOSPHATASE 99 IU/L (46-116); ANION GAP 10 (8-16); ASPARTATE AMINO TRANSFERASE 18 U/L (10-37); BILIRUBIN,TOTAL 0.3 MG/DL (0.1-1.0); BLOOD UREA NITROGEN 24 MG/DL (7-18); BUN/CREATININE RATIO 18.6 (6.6-38.0); CHLORIDE 106 MMOL/L (99-107); CREATININE 1.29 MG/DL (0.40-0.90); POTASSIUM 4.1 MMOL/L (3.5-5.1); SODIUM 138 MMOL/L (135-145); TOTAL PROTEIN 7.3 G/DL (6.4-8.2); eGFR 49 ML/MIN
[2018-12-07 16:27] LABS: GLUCOSE 467 MG/DL (70-104)
[2018-12-07] MEDS ORDERED: insulin regular, human 10 units/0.1 ml syringe IV ONE ×2 (16:30→16:50)
[2018-12-07 16:31] LABS: BASOPHILS % (AUTO) 0.7 % (0-1); EOSINOPHILS # (AUTO) 0.1 X10'3 (0-0.9); EOSINOPHILS % (AUTO) 1.9 % (0-6); HEMATOCRIT 29.1 % (35.0-45.0); HEMOGLOBIN 9.7 g/dl (12.0-16.0); LYMPHOCYTES # (AUTO) 2.1 X10'3 (1.1-4.8); LYMPHOCYTES % (AUTO) 35.4 % (21-51); MEAN CORPUSCULAR HEMOGLOBIN 27.5 PG (27.0-31.0); MEAN CORPUSCULAR HGB CONC 33.5 g/dL (33.0-36.5); MEAN CORPUSCULAR VOLUME 82.1 FL (78-98); MEAN PLATELET VOLUME 7.6 FL (7.4-10.4); MONOCYTES # (AUTO) 0.7 X10'3 (0-0.9); MONOCYTES % (AUTO) 11.1 % (2-12); NEUTROPHILS % (AUTO) 50.9 % (42-75); PLATELET COUNT 315 X10'3 (140-440); RED BLOOD COUNT 3.54 X10'6 (4.20-5.60); RED CELL DISTRIBUTION WIDTH 15.5 % (11.5-14.5); WHITE BLOOD COUNT 5.9 X10'3 (4.5-11.0)
[2018-12-07 16:32] LABS: URINE HCG NEGATIVE (NEG)
[2018-12-07 16:33] LABS: CLARITY,URINE CLEAR (Clear); COLOR,URINE YELLOW (Yellow); GLUCOSE, URINE >=1000 mg/dl (Neg); KETONES,URINE NEGATIVE (Neg); LEUKOCYTE ESTERASE ,URINE NEGATIVE (Neg); NITRITES, URINE NEGATIVE (Neg); OCCULT BLOOD,URINE MODERATE (Neg); PH,URINE 6.5 (4.8-8.0); PROTEIN,URINE TRACE mg/dl (Neg); UROBILINOGEN,URINE 0.2 E.U/dL (0.2-1.0)
[2018-12-07 16:37] LABS: UA COLLECTION TYPE CLN CATCH MIDSTREAM
[2018-12-07 16:38] LABS: BACTERIA,URINE NONE SEEN /HPF (Neg); MUCUS STRANDS NONE SEEN /LPF (Neg); SQUAMOUS EPITHELIAL CELL,UR MODERATE /LPF (FEW); WBC,URINE NONE SEEN /HPF (0-4)
--- NOTE | 2018-12-07 16:40 | NUR ---
Pt. reports that she gave herself a bolus of humalog from her insulin pump at around 1550 for a blood glucose of >400. MD made aware of this and order received to check blood glucose using glucometer. Per MD, if blood glucose is above 300, give the ordered humulin 5u dose. Blood glucose was checked and resulted 330. Primary nurse also made aware.
--- NOTE | 2018-12-07 16:46 | NUR ---
Pt. expressed that she is apprehensive about getting the full 5units of humulin. She states that she receives 0.65u/hr of basal insulin through her pump. Spoke with regarding this concern. okayed to give only 2units of humulin per pt's request.
[2018-12-07 16:52] VITALS: BP 162/100
[2018-12-07] MEDS ORDERED: HYDROcodone/acetaminophen 5mg/325mg tablet PO ONE (17:15)
--- NOTE | 2018-12-07 17:18 | NUR ---
blood sugar on pts insulin pump is now 220. Spoke with Dr. Chang about pt's pain in left arm is back with numbness. New orders placed for pain medication.
[2018-12-07] MEDS ORDERED: ACET-3067 PO (17:28)
== END 2018-12-07 17:47 | disposition home or self-care (01) ==
LOC: ER 14:40
DX: E11.65 Type 2 diabetes mellitus with hyperglycemia (principal); M79.642 Pain in left hand; R20.2 Paresthesia of skin; E86.0 Dehydration; M54.2 Cervicalgia; Z90.49 Acquired absence of other specified parts of digestive tract; Z98.890 Other specified postprocedural states; Z88.0 Allergy status to penicillin; Z88.2 Allergy status to sulfonamides; Z88.1 Allergy status to other antibiotic agents; Z88.6 Allergy status to analgesic agent; Z79.4 Long term (current) use of insulin; Z79.899 Other long term (current) drug therapy
CPT/HCPCS: 36415; 80053; 81001; 81025; 82948; 85025; 96361; 96374; 96375; 99283; J1815; J2405; J3010; J7030

== ENCOUNTER 2018-12-26 03:35 | Emergency (ER) | payer MEDICARE, MEDICAID ==
[~2018-12-26] VITALS: Ht 157.5 cm; Wt 59.0 kg
[2018-12-26] MEDS ORDERED: PHEN-716 PO (04:04)
[2018-12-26] MEDS ORDERED: CIPR-259 PO (04:04)
[2018-12-26 04:12] LABS: CLARITY,URINE SLIGHTLY CLOUDY (Clear); COLOR,URINE YELLOW (Yellow); GLUCOSE, URINE NEGATIVE (Neg); KETONES,URINE TRACE mg/dl (Neg); LEUKOCYTE ESTERASE ,URINE NEGATIVE (Neg); NITRITES, URINE NEGATIVE (Neg); OCCULT BLOOD,URINE SMALL (Neg); PH,URINE 7.5 (4.8-8.0); PROTEIN,URINE 100 mg/dl (Neg)
[2018-12-26 04:13] LABS: URINE HCG NEGATIVE (NEG)
--- NOTE | 2018-12-26 04:13 | NUR ---
PT COMPLAINED OF THIRST ADN TIREDNESS, STATED THAT SHE "THICKS HER BLOOD SUGAR IS GETTING HIGH" BLOOD SUGAR AT [address] MOISE WHO VERBALIZED PT CAN HAVE WATER , AND CONTINUE TO MANAGE HER DIABETES INSTRUCTED BY HER PRIMARY MEDICAL MD
[2018-12-26 04:17] LABS: UA COLLECTION TYPE CLN CATCH MIDSTREAM
[2018-12-26 04:18] LABS: BACTERIA,URINE FEW /HPF (Neg)
[2018-12-26 04:19] LABS: SQUAMOUS EPITHELIAL CELL,UR MANY /LPF (FEW)
[2018-12-26 04:30] VITALS: BP 153/88
== END 2018-12-26 04:25 | disposition home or self-care (01) ==
LOC: ER 03:36
DX: N39.0 Urinary tract infection, site not specified (principal); E10.65 Type 1 diabetes mellitus with hyperglycemia; G89.29 Other chronic pain; M25.512 Pain in left shoulder; E10.42 Type 1 diabetes mellitus with diabetic polyneuropathy; Z90.49 Acquired absence of other specified parts of digestive tract; Z98.890 Other specified postprocedural states; Z88.0 Allergy status to penicillin; Z88.2 Allergy status to sulfonamides; Z88.1 Allergy status to other antibiotic agents; Z88.8 Allergy status to other drugs, medicaments and biological substances; Z79.4 Long term (current) use of insulin; Z79.899 Other long term (current) drug therapy
CPT/HCPCS: 81001; 81025; 82948; 99283

== ENCOUNTER 2019-01-21 05:53 | Emergency (ER) | payer MEDICARE, MEDICAID ==
[~2019-01-21] VITALS: Ht 157.5 cm; Wt 59.0 kg
[~2019-01-21 05:53] MED LIST changes: +PHEN-716 PO
[2019-01-21] MEDS ORDERED: ondansetron/PF 4mg/2ml inj IV ONE (06:50)
[2019-01-21] MEDS ORDERED: normal saline 1000ML IV soln IVB ONE (06:50)
[2019-01-21] MEDS ORDERED: pantoprazole 40 MG vial IV ONE (06:50)
[2019-01-21 07:22] LABS: CLARITY,URINE CLEAR (Clear); COLOR,URINE YELLOW (Yellow); GLUCOSE, URINE 500 mg/dl (Neg); KETONES,URINE NEGATIVE (Neg); LEUKOCYTE ESTERASE ,URINE NEGATIVE (Neg); NITRITES, URINE NEGATIVE (Neg); OCCULT BLOOD,URINE MODERATE (Neg); PH,URINE 7.5 (4.8-8.0); PROTEIN,URINE TRACE mg/dl (Neg); UROBILINOGEN,URINE 0.2 E.U/dL (0.2-1.0)
[2019-01-21 07:26] LABS: UA COLLECTION TYPE CLN CATCH MIDSTREAM
[2019-01-21 07:59] LABS: WBC,URINE 0-4 /HPF (0-4)
[2019-01-21 08:00] LABS: BACTERIA,URINE FEW /HPF (Neg); MUCUS STRANDS NONE SEEN /LPF (Neg); SQUAMOUS EPITHELIAL CELL,UR MODERATE /LPF (FEW)
[2019-01-21 08:01] LABS: AMORPHOUS PHOSPHATES 1+; RBC,URINE 0-2 /HPF (0-2)
[2019-01-21 08:22] LABS: BASOPHILS # (AUTO) 0.1 X10'3 (0-0.2); EOSINOPHILS # (AUTO) 0.1 X10'3 (0-0.9); EOSINOPHILS % (AUTO) 2.4 % (0-6); HEMATOCRIT 31.6 % (35.0-45.0); HEMOGLOBIN 10.5 g/dl (12.0-16.0); LYMPHOCYTES # (AUTO) 2.1 X10'3 (1.1-4.8); LYMPHOCYTES % (AUTO) 39.8 % (21-51); MEAN CORPUSCULAR HEMOGLOBIN 27.5 PG (27.0-31.0); MEAN CORPUSCULAR HGB CONC 33.4 g/dL (33.0-36.5); MEAN CORPUSCULAR VOLUME 82.4 FL (78-98); MEAN PLATELET VOLUME 7.4 FL (7.4-10.4); MONOCYTES # (AUTO) 0.4 X10'3 (0-0.9); MONOCYTES % (AUTO) 8.3 % (2-12); NEUTROPHILS # (AUTO) 2.6 X10'3 (1.8-7.7); NEUTROPHILS % (AUTO) 48.5 % (42-75); PLATELET COUNT 330 X10'3 (140-440); RED BLOOD COUNT 3.83 X10'6 (4.20-5.60); RED CELL DISTRIBUTION WIDTH 14.9 % (11.5-14.5); WHITE BLOOD COUNT 5.3 X10'3 (4.5-11.0)
[2019-01-21] MEDS ORDERED: acetaminophen 325mg tablet PO ONE (08:25)
[2019-01-21 08:36] LABS: ALANINE AMINOTRANSFERASE 27 U/L (12-78); ALBUMIN 3.7 G/DL (3.4-5.0); ALBUMIN/GLOBULIN RATIO 1.1 (1.1-1.5); ALKALINE PHOSPHATASE 81 IU/L (46-116); ANION GAP 7 (8-16); ASPARTATE AMINO TRANSFERASE 24 U/L (10-37); BILIRUBIN,TOTAL 0.3 MG/DL (0.1-1.0); BLOOD UREA NITROGEN 17 MG/DL (7-18); BUN/CREATININE RATIO 13.5 (6.6-38.0); CALCIUM 8.6 MG/DL (8.5-10.1); CHLORIDE 103 MMOL/L (99-107); CREATININE 1.26 MG/DL (0.40-0.90); GLUCOSE 332 MG/DL (70-104); LIPASE 632 U/L (73-393); SODIUM 137 MMOL/L (135-145); TOTAL CARBON DIOXIDE 26.6 MMOL/L (24-32); TOTAL PROTEIN 7.1 G/DL (6.4-8.2); eGFR 50 ML/MIN
[2019-01-21 08:46] LABS: HCG SERUM QL NEGATIVE
[2019-01-21] MEDS ORDERED: ONDA8TAB13 PO (09:02)
[2019-01-21 09:29] VITALS: BP 191/107
== END 2019-01-21 09:33 | disposition home or self-care (01) ==
LOC: ER 05:53
DX: K85.90 Acute pancreatitis without necrosis or infection, unspecified (principal); E11.65 Type 2 diabetes mellitus with hyperglycemia; E11.43 Type 2 diabetes mellitus with diabetic autonomic (poly)neuropathy; Z88.0 Allergy status to penicillin; Z88.2 Allergy status to sulfonamides; Z88.1 Allergy status to other antibiotic agents; Z88.6 Allergy status to analgesic agent; Z79.4 Long term (current) use of insulin; Z79.899 Other long term (current) drug therapy; Z87.19 Personal history of other diseases of the digestive system; Z90.49 Acquired absence of other specified parts of digestive tract; Z98.890 Other specified postprocedural states
CPT/HCPCS: 36415; 80053; 81001; 83690; 84703; 85025; 96361; 96374; 96375; 99283; C9113; J2405; J7030

== ENCOUNTER 2019-02-02 02:14 | Emergency (ER) | payer MEDICARE, MEDICAID ==
[~2019-02-02] VITALS: Ht 157.5 cm; Wt 59.1 kg
[~2019-02-02 02:14] MED LIST changes: +ONDA8TAB13 PO
[2019-02-02] MEDS ORDERED: normal saline 1000ML IV soln IVB ONE (02:45)
[2019-02-02] MEDS ORDERED: insulin regular, human 10 units/0.1 ml syringe SQ ONE (02:45)
[2019-02-02 03:04] LABS: CLARITY,URINE CLEAR (Clear); COLOR,URINE YELLOW (Yellow); GLUCOSE, URINE >=1000 mg/dl (Neg); KETONES,URINE NEGATIVE (Neg); LEUKOCYTE ESTERASE ,URINE NEGATIVE (Neg); NITRITES, URINE NEGATIVE (Neg); OCCULT BLOOD,URINE MODERATE (Neg); PH,URINE 7.5 (4.8-8.0); PROTEIN,URINE NEGATIVE (Neg); UROBILINOGEN,URINE 0.2 E.U/dL (0.2-1.0)
[2019-02-02 03:11] LABS: BACTERIA,URINE FEW /HPF (Neg); SQUAMOUS EPITHELIAL CELL,UR FEW /LPF (FEW); UA COLLECTION TYPE CLN CATCH MIDSTREAM; WBC,URINE NONE SEEN /HPF (0-4)
[2019-02-02 03:29] LABS: BASOPHILS % (AUTO) 0.8 % (0-1); EOSINOPHILS # (AUTO) 0.1 X10'3 (0-0.9); EOSINOPHILS % (AUTO) 1.7 % (0-6); HEMATOCRIT 30.3 % (35.0-45.0); HEMOGLOBIN 10.2 g/dl (12.0-16.0); LYMPHOCYTES # (AUTO) 1.5 X10'3 (1.1-4.8); LYMPHOCYTES % (AUTO) 26.3 % (21-51); MEAN CORPUSCULAR HEMOGLOBIN 27.7 PG (27.0-31.0); MEAN CORPUSCULAR HGB CONC 33.6 g/dL (33.0-36.5); MEAN CORPUSCULAR VOLUME 82.6 FL (78-98); MEAN PLATELET VOLUME 7.9 FL (7.4-10.4); MONOCYTES # (AUTO) 0.4 X10'3 (0-0.9); MONOCYTES % (AUTO) 7.4 % (2-12); NEUTROPHILS # (AUTO) 3.7 X10'3 (1.8-7.7); NEUTROPHILS % (AUTO) 63.8 % (42-75); PLATELET COUNT 287 X10'3 (140-440); RED BLOOD COUNT 3.67 X10'6 (4.20-5.60); RED CELL DISTRIBUTION WIDTH 14.4 % (11.5-14.5); WHITE BLOOD COUNT 5.7 X10'3 (4.5-11.0)
[2019-02-02] MEDS ORDERED: morphine 4 MG/ML inj SYRINge IV ONE ×2 (04:30→05:35)
[2019-02-02 05:01] LABS: ALANINE AMINOTRANSFERASE 27 U/L (12-78); ALBUMIN 3.6 G/DL (3.4-5.0); ALBUMIN/GLOBULIN RATIO 1.1 (1.1-1.5); ALKALINE PHOSPHATASE 97 IU/L (46-116); ANION GAP 6 (8-16); ASPARTATE AMINO TRANSFERASE 16 U/L (10-37); BILIRUBIN,TOTAL 0.2 MG/DL (0.1-1.0); BLOOD UREA NITROGEN 24 MG/DL (7-18); BUN/CREATININE RATIO 19.2 (6.6-38.0); CALCIUM 8.9 MG/DL (8.5-10.1); CHLORIDE 103 MMOL/L (99-107); CREATININE 1.25 MG/DL (0.40-0.90); GLUCOSE 361 MG/DL (70-104); MAGNESIUM 1.8 MG/DL (1.5-2.4); SODIUM 136 MMOL/L (135-145); TOTAL CARBON DIOXIDE 27.5 MMOL/L (24-32); eGFR 50 ML/MIN
[2019-02-02 05:57] VITALS: BP 173/105
== END 2019-02-02 05:47 | disposition home or self-care (01) ==
LOC: ER 02:15
DX: E10.65 Type 1 diabetes mellitus with hyperglycemia (principal); E10.42 Type 1 diabetes mellitus with diabetic polyneuropathy; R11.10 Vomiting, unspecified; Z90.49 Acquired absence of other specified parts of digestive tract; Z98.890 Other specified postprocedural states; Z88.0 Allergy status to penicillin; Z88.2 Allergy status to sulfonamides; Z88.1 Allergy status to other antibiotic agents; Z79.4 Long term (current) use of insulin; Z79.899 Other long term (current) drug therapy
CPT/HCPCS: 36415; 80053; 81001; 82948; 83735; 85025; 96361; 96372; 96374; 96376; 99283; J1815; J2270; J7030

== ENCOUNTER 2019-08-02 17:56 | Emergency (ER) | payer MEDICARE, MEDICAID ==
[~2019-08-02] VITALS: Ht 157.5 cm; Wt 73.0 kg
[2019-08-02 18:15] VITALS: BP 138/80
--- NOTE | 2019-08-02 20:31 | NUR ---
pt not in room. pt left without signing dc paperwork or acewrap
== END 2019-08-02 20:33 | disposition home or self-care (01) ==
LOC: ER 17:57
DX: S93.602A Unspecified sprain of left foot, initial encounter (principal); E11.42 Type 2 diabetes mellitus with diabetic polyneuropathy; Z90.49 Acquired absence of other specified parts of digestive tract; Z98.890 Other specified postprocedural states; Z88.0 Allergy status to penicillin; Z88.8 Allergy status to other drugs, medicaments and biological substances; Z79.4 Long term (current) use of insulin; Z79.899 Other long term (current) drug therapy; X58.XXXA Exposure to other specified factors, initial encounter; Y93.89 Activity, other specified; Y92.89 Other specified places as the place of occurrence of the external cause; Y99.8 Other external cause status
CPT/HCPCS: 99281

== ENCOUNTER 2019-10-14 00:27 | Emergency (ER) | payer MEDICARE, MEDICAID ==
[~2019-10-14] VITALS: Ht 157.5 cm; Wt 65.5 kg
[2019-10-14 01:07] LABS: COLOR,URINE YELLOW (Yellow); GLUCOSE, URINE NEGATIVE (Neg); KETONES,URINE NEGATIVE (Neg); LEUKOCYTE ESTERASE ,URINE TRACE (Neg); NITRITES, URINE NEGATIVE (Neg); OCCULT BLOOD,URINE MODERATE (Neg); PROTEIN,URINE 100 mg/dl (Neg); UROBILINOGEN,URINE 0.2 E.U/dL (0.2-1.0)
[2019-10-14 01:13] LABS: CLARITY,URINE SLIGHTLY CLOUDY (Clear); UA COLLECTION TYPE CLN CATCH MIDSTREAM
[2019-10-14 01:14] LABS: BASOPHILS % (AUTO) 0.5 % (0-1); EOSINOPHILS # (AUTO) 0.2 X10'3 (0-0.9); EOSINOPHILS % (AUTO) 3.4 % (0-6); HEMATOCRIT 35.1 % (35.0-45.0); HEMOGLOBIN 11.7 g/dl (12.0-16.0); LYMPHOCYTES # (AUTO) 2.2 X10'3 (1.1-4.8); LYMPHOCYTES % (AUTO) 38.8 % (21-51); MEAN CORPUSCULAR HEMOGLOBIN 31.4 PG (27.0-31.0); MEAN CORPUSCULAR HGB CONC 33.5 g/dL (33.0-36.5); MEAN CORPUSCULAR VOLUME 93.8 FL (78-98); MEAN PLATELET VOLUME 6.9 FL (7.4-10.4); MONOCYTES # (AUTO) 0.4 X10'3 (0-0.9); MONOCYTES % (AUTO) 7.8 % (2-12); NEUTROPHILS # (AUTO) 2.8 X10'3 (1.8-7.7); NEUTROPHILS % (AUTO) 49.5 % (42-75); PLATELET COUNT 473 X10'3 (140-440); RED BLOOD COUNT 3.74 X10'6 (4.20-5.60); RED CELL DISTRIBUTION WIDTH 13.5 % (11.5-14.5); WHITE BLOOD COUNT 5.7 X10'3 (4.5-11.0)
[2019-10-14 01:14] LABS: BACTERIA,URINE FEW /HPF (Neg); RBC,URINE 0-2 /HPF (0-2); SQUAMOUS EPITHELIAL CELL,UR FEW /LPF (FEW); WBC,URINE 0-4 /HPF (0-4)
[2019-10-14 01:24] LABS: ALANINE AMINOTRANSFERASE 99 U/L (12-78); ALBUMIN 3.8 G/DL (3.4-5.0); ALKALINE PHOSPHATASE 209 IU/L (46-116); ANION GAP 9 (8-16); ASPARTATE AMINO TRANSFERASE 245 U/L (10-37); BILIRUBIN,TOTAL 0.4 MG/DL (0.1-1.0); BLOOD UREA NITROGEN 17 MG/DL (7-18); BUN/CREATININE RATIO 10.4 (6.6-38.0); CHLORIDE 105 MMOL/L (99-107); CREATININE 1.64 MG/DL (0.40-0.90); GLUCOSE 143 MG/DL (70-104); LIPASE 216 U/L (73-393); POTASSIUM 3.8 MMOL/L (3.5-5.1); SODIUM 142 MMOL/L (135-145); TOTAL PROTEIN 7.8 G/DL (6.4-8.2); eGFR 37 ML/MIN
[2019-10-14 01:57] LABS: URINE HCG NEGATIVE (NEG)
[2019-10-14] MEDS ORDERED: famotidine/PF 10 mg/ml inj IV ONE (02:55)
[2019-10-14 03:31] VITALS: BP 130/77
== END 2019-10-14 04:10 | disposition left against medical advice (07) ==
LOC: ER 00:28
DX: R10.13 Epigastric pain (principal); R74.0 Nonspecific elevation of levels of transaminase and lactic acid dehydrogenase [LDH]; R11.10 Vomiting, unspecified; E11.42 Type 2 diabetes mellitus with diabetic polyneuropathy; Z90.49 Acquired absence of other specified parts of digestive tract; Z98.890 Other specified postprocedural states; Z88.0 Allergy status to penicillin; Z88.2 Allergy status to sulfonamides; Z88.8 Allergy status to other drugs, medicaments and biological substances; Z79.4 Long term (current) use of insulin; Z79.899 Other long term (current) drug therapy
CPT/HCPCS: 36415; 80053; 81001; 81025; 83690; 85025; 87088; 96374; 99283; J3490; 87077; 87186

== ENCOUNTER 2019-11-23 13:53 | Emergency (ER) | payer MEDICARE, MEDICAID ==
[~2019-11-23] VITALS: Ht 162.6 cm; Wt 63.0 kg
[2019-11-23 14:34] LABS: CLARITY,URINE SLIGHTLY CLOUDY (Clear); COLOR,URINE YELLOW (Yellow); GLUCOSE, URINE 250 mg/dl (Neg); KETONES,URINE NEGATIVE (Neg); LEUKOCYTE ESTERASE ,URINE LARGE (Neg); NITRITES, URINE NEGATIVE (Neg); OCCULT BLOOD,URINE SMALL (Neg); PROTEIN,URINE TRACE mg/dl (Neg); UROBILINOGEN,URINE 0.2 E.U/dL (0.2-1.0)
[2019-11-23 14:40] LABS: BACTERIA,URINE 1+ /HPF (Neg); MUCUS STRANDS FEW /LPF (Neg); RBC,URINE 20-50 /HPF (0-2); SQUAMOUS EPITHELIAL CELL,UR MODERATE /LPF (FEW); UA COLLECTION TYPE NON-SPECIFIED; WBC,URINE 50-100 /HPF (0-4)
[2019-11-23] MEDS ORDERED: CIPR-259 PO (16:30)
[2019-11-23 16:37] VITALS: BP 149/97
--- NOTE | 2019-11-23 16:55 | NUR ---
eunice mcintosh engaged in US of pt.
[2019-11-23] MEDS ORDERED: HYDR-4383 PO (17:05)
[2019-11-23] MEDS ORDERED: HYDROcodone/acetaminophen 5mg/325mg tablet PO ONE (17:05)
== END 2019-11-23 17:21 | disposition home or self-care (01) ==
LOC: ER 13:53
DX: N10 Acute pyelonephritis (principal); G62.9 Polyneuropathy, unspecified; E11.9 Type 2 diabetes mellitus without complications; Z90.49 Acquired absence of other specified parts of digestive tract; Z98.890 Other specified postprocedural states; Z88.0 Allergy status to penicillin; Z88.8 Allergy status to other drugs, medicaments and biological substances; Z79.4 Long term (current) use of insulin; Z79.899 Other long term (current) drug therapy
CPT/HCPCS: 76857; 81001; 87088; 99284

== ENCOUNTER 2020-03-07 18:42 | Emergency (ER) | payer MEDICARE, MEDICAID ==
[~2020-03-07] VITALS: Ht 157.5 cm; Wt 54.5 kg
[~2020-03-07 18:42] MED LIST changes: +HYDR-4383 PO
[2020-03-07 19:07] VITALS: BP 127/80
== END 2020-03-07 19:09 | disposition home or self-care (01) ==
LOC: ER 18:43
DX: S09.93XA Unspecified injury of face, initial encounter (principal); K08.89 Other specified disorders of teeth and supporting structures; E11.42 Type 2 diabetes mellitus with diabetic polyneuropathy; Z90.49 Acquired absence of other specified parts of digestive tract; Z98.890 Other specified postprocedural states; Z88.0 Allergy status to penicillin; Z88.2 Allergy status to sulfonamides; Z88.8 Allergy status to other drugs, medicaments and biological substances; Z79.4 Long term (current) use of insulin; Z79.899 Other long term (current) drug therapy; X58.XXXA Exposure to other specified factors, initial encounter; Y93.89 Activity, other specified; Y92.89 Other specified places as the place of occurrence of the external cause; Y99.8 Other external cause status
CPT/HCPCS: 99281

== ENCOUNTER 2020-07-11 06:02 | Emergency (ER) | payer MEDICARE, MEDICAID ==
[~2020-07-11] VITALS: Ht 160 cm; Wt 54.5 kg
[2020-07-11 06:24] VITALS: BP 159/90
[2020-07-11 06:57] LABS: URINE HCG NEGATIVE (NEG)
[2020-07-11 07:08] LABS: CLARITY,URINE CLOUDY (Clear); COLOR,URINE YELLOW (Yellow); GLUCOSE, URINE >=1000 mg/dl (Neg); KETONES,URINE NEGATIVE (Neg); LEUKOCYTE ESTERASE ,URINE SMALL (Neg); NITRITES, URINE POSITIVE (Neg); OCCULT BLOOD,URINE TRACE-INTACT (Neg); PH,URINE 6.5 (4.8-8.0); PROTEIN,URINE 30 mg/dl (Neg)
[2020-07-11 07:12] LABS: UA COLLECTION TYPE CLN CATCH MIDSTREAM
[2020-07-11 07:14] LABS: BACTERIA,URINE FEW /HPF (Neg); MUCUS STRANDS FEW /LPF (Neg); RBC,URINE 0-2 /HPF (0-2); SQUAMOUS EPITHELIAL CELL,UR FEW /LPF (FEW); TRANSITIONAL EPI CELLS,URINE FEW /HPF; WBC,URINE 50-100 /HPF (0-4)
[2020-07-11] MEDS ORDERED: LEVO500T89 PO (07:19)
[2020-07-11] MEDS ORDERED: PHEN-716 PO (07:19)
[2020-07-11] MEDS ORDERED: levoFLOXACIN 250mg tablet PO ONE (07:20)
[2020-07-11] MEDS ORDERED: phenazopyridine 100mg tablet PO ONE (07:20)
[2020-07-11] MEDS ORDERED: acetaminophen 325mg tablet PO ONE (07:20)
== END 2020-07-11 07:36 | disposition home or self-care (01) ==
LOC: ER 06:03
DX: N39.0 Urinary tract infection, site not specified (principal); E11.42 Type 2 diabetes mellitus with diabetic polyneuropathy; Z87.440 Personal history of urinary (tract) infections; Z90.49 Acquired absence of other specified parts of digestive tract; Z98.890 Other specified postprocedural states; Z79.4 Long term (current) use of insulin; Z79.899 Other long term (current) drug therapy; Z88.0 Allergy status to penicillin; Z88.2 Allergy status to sulfonamides; Z88.1 Allergy status to other antibiotic agents; Z88.6 Allergy status to analgesic agent; Z88.8 Allergy status to other drugs, medicaments and biological substances
CPT/HCPCS: 81001; 81025; 87077; 87088; 87186; 99284

== ENCOUNTER 2020-08-05 09:39 | Emergency (ER) | payer MEDICARE, MEDICAID ==
[~2020-08-05] VITALS: Ht 157.5 cm; Wt 53.8 kg
[2020-08-05 10:29] LABS: URINE HCG NEGATIVE (NEG)
[2020-08-05 10:35] LABS: CLARITY,URINE BLOODY (Clear); COLOR,URINE Red (Yellow); UA COLLECTION TYPE CLN CATCH MIDSTREAM
[2020-08-05 10:46] LABS: RBC,URINE TNTC /HPF (0-2)
[2020-08-05 10:50] LABS: BACTERIA,URINE 2+ /HPF (Neg); SQUAMOUS EPITHELIAL CELL,UR MANY /LPF (FEW)
[2020-08-05 10:56] LABS: BASOPHILS # (AUTO) 0.1 X10'3 (0-0.2); BASOPHILS % (AUTO) 1.5 % (0-1); EOSINOPHILS # (AUTO) 0.3 X10'3 (0-0.9); EOSINOPHILS % (AUTO) 4.9 % (0-6); HEMATOCRIT 38.7 % (35.0-45.0); LYMPHOCYTES # (AUTO) 2.2 X10'3 (1.1-4.8); LYMPHOCYTES % (AUTO) 33.9 % (21-51); MEAN CORPUSCULAR HEMOGLOBIN 30.9 PG (27.0-31.0); MEAN CORPUSCULAR HGB CONC 33.6 g/dL (33.0-36.5); MEAN CORPUSCULAR VOLUME 92.2 FL (78-98); MEAN PLATELET VOLUME 7.9 FL (7.4-10.4); MONOCYTES # (AUTO) 0.6 X10'3 (0-0.9); MONOCYTES % (AUTO) 8.9 % (2-12); NEUTROPHILS # (AUTO) 3.2 X10'3 (1.8-7.7); NEUTROPHILS % (AUTO) 50.8 % (42-75); PLATELET COUNT 376 X10'3 (140-440); RED BLOOD COUNT 4.19 X10'6 (4.20-5.60); RED CELL DISTRIBUTION WIDTH 13.2 % (11.5-14.5); WHITE BLOOD COUNT 6.3 X10'3 (4.5-11.0)
[2020-08-05 11:24] LABS: ALANINE AMINOTRANSFERASE 28 U/L (12-78); ALBUMIN 3.9 G/DL (3.4-5.0); ALBUMIN/GLOBULIN RATIO 1.1 (1.1-1.5); ALKALINE PHOSPHATASE 64 IU/L (46-116); ANION GAP 9 (8-16); BILIRUBIN,TOTAL 0.6 MG/DL (0.1-1.0); BLOOD UREA NITROGEN 18 MG/DL (7-18); BUN/CREATININE RATIO 17.8 (6.6-38.0); CALCIUM 8.9 MG/DL (8.5-10.1); CHLORIDE 107 MMOL/L (99-107); CREATININE 1.01 MG/DL (0.40-0.90); GLUCOSE 144 MG/DL (70-104); SODIUM 142 MMOL/L (135-145); TOTAL CARBON DIOXIDE 25.7 MMOL/L (24-32); TOTAL PROTEIN 7.6 G/DL (6.4-8.2); eGFR 64 ML/MIN
[2020-08-05 11:29] LABS: BETA HCG,QUANTITATIVE 34 mIU/ml
[2020-08-05 11:30] LABS: ASPARTATE AMINO TRANSFERASE 34 U/L (10-37); POTASSIUM 5.1 MMOL/L (3.5-5.1)
[2020-08-05 12:25] VITALS: BP 136/94
== END 2020-08-05 12:28 | disposition home or self-care (01) ==
LOC: ER 09:40
DX: O72.1 Other immediate postpartum hemorrhage (principal); O03.9 Complete or unspecified spontaneous abortion without complication; N93.9 Abnormal uterine and vaginal bleeding, unspecified; R10.30 Lower abdominal pain, unspecified; E11.42 Type 2 diabetes mellitus with diabetic polyneuropathy; Z3A.16 16 weeks gestation of pregnancy; Z87.440 Personal history of urinary (tract) infections; Z90.89 Acquired absence of other organs; Z90.49 Acquired absence of other specified parts of digestive tract; Z98.890 Other specified postprocedural states; Z88.0 Allergy status to penicillin; Z88.2 Allergy status to sulfonamides; Z88.1 Allergy status to other antibiotic agents; Z79.2 Long term (current) use of antibiotics; Z79.4 Long term (current) use of insulin; Z79.899 Other long term (current) drug therapy
CPT/HCPCS: 36415; 76815; 80053; 81001; 81025; 84702; 85025; 86885; 86900; 86901; 99284

== ENCOUNTER 2020-10-30 16:18 | Emergency (ER) | payer MEDICARE, MEDICAID ==
[~2020-10-30] VITALS: Ht 157.5 cm; Wt 59.1 kg
[2020-10-30 20:24] VITALS: BP 170/106
[2020-10-30] MEDS ORDERED: dexamethasone sod phosphate 10mg/ml inj PO STA (21:12)
[2020-10-30] MEDS ORDERED: CLIN-97 PO (21:17)
== END 2020-10-30 22:00 | disposition home or self-care (01) ==
LOC: ER 16:18
DX: K08.89 Other specified disorders of teeth and supporting structures (principal); E11.43 Type 2 diabetes mellitus with diabetic autonomic (poly)neuropathy; Z87.440 Personal history of urinary (tract) infections; Z90.49 Acquired absence of other specified parts of digestive tract; Z98.891 History of uterine scar from previous surgery; Z98.890 Other specified postprocedural states; F17.210 Nicotine dependence, cigarettes, uncomplicated; Z79.4 Long term (current) use of insulin; Z79.899 Other long term (current) drug therapy; Z79.2 Long term (current) use of antibiotics; Z88.0 Allergy status to penicillin; Z88.2 Allergy status to sulfonamides; Z88.1 Allergy status to other antibiotic agents; Z88.6 Allergy status to analgesic agent; Z88.8 Allergy status to other drugs, medicaments and biological substances
CPT/HCPCS: 99283

== ENCOUNTER → 2020-11-21 | Emergency (ER) | payer MEDICARE, MEDICAID ==
[~2020-11-21] VITALS: Ht 157.5 cm; Wt 59.0 kg
[~2020-11-21] MED LIST changes: +CLIN-97 PO
[2020-11-21 10:13] VITALS: BP 146/91
== END | disposition left against medical advice (07) ==
LOC: ER 10:03
DX: K08.89 Other specified disorders of teeth and supporting structures (principal); Z53.21 Procedure and treatment not carried out due to patient leaving prior to being seen by health care provider

== ENCOUNTER 2021-08-08 22:55 | Emergency (ER) | payer MEDICARE, MEDICAID ==
[~2021-08-08] VITALS: Ht 157.5 cm; Wt 59.1 kg
[2021-08-09 00:27] LABS: URINE HCG NEGATIVE (NEG)
[2021-08-09 00:35] LABS: CLARITY,URINE SLIGHTLY CLOUDY (Clear); COLOR,URINE YELLOW (Yellow); GLUCOSE, URINE 500 mg/dl (Neg); KETONES,URINE NEGATIVE (Neg); LEUKOCYTE ESTERASE ,URINE MODERATE (Neg); NITRITES, URINE POSITIVE (Neg); OCCULT BLOOD,URINE SMALL (Neg); PH,URINE 6.5 (4.8-8.0); PROTEIN,URINE 30 mg/dl (Neg); UROBILINOGEN,URINE 0.2 E.U/dL (0.2-1.0)
[2021-08-09 00:41] LABS: UA COLLECTION TYPE CLN CATCH MIDSTREAM
[2021-08-09 00:42] LABS: BACTERIA,URINE 2+ /HPF (Neg); SQUAMOUS EPITHELIAL CELL,UR FEW /LPF (FEW); WBC,URINE 20-30 /HPF (0-4)
[2021-08-09 00:53] VITALS: BP 143/97
[2021-08-09] MEDS ORDERED: oxyCODONE/APAP 5-325mg tablet PO ONE (01:30)
[2021-08-09] MEDS ORDERED: levoFLOXACIN 750MG TABLET PO ONE (01:30)
[2021-08-09] MEDS ORDERED: CIPR-202 PO (01:37)
== END 2021-08-09 02:07 | disposition home or self-care (01) ==
LOC: ER 22:56
DX: N39.0 Urinary tract infection, site not specified (principal); R30.0 Dysuria; E11.42 Type 2 diabetes mellitus with diabetic polyneuropathy; F17.200 Nicotine dependence, unspecified, uncomplicated; Z87.440 Personal history of urinary (tract) infections; Z90.89 Acquired absence of other organs; Z90.49 Acquired absence of other specified parts of digestive tract; Z98.890 Other specified postprocedural states; Z88.0 Allergy status to penicillin; Z88.2 Allergy status to sulfonamides; Z88.1 Allergy status to other antibiotic agents; Z88.8 Allergy status to other drugs, medicaments and biological substances; Z79.2 Long term (current) use of antibiotics; Z79.4 Long term (current) use of insulin; Z79.899 Other long term (current) drug therapy
CPT/HCPCS: 81001; 81025; 87077; 87088; 87186; 99283

== ENCOUNTER 2022-02-05 03:37 | Emergency (ER) | payer MEDICARE, MEDICAID ==
[~2022-02-05] VITALS: Ht 157.5 cm; Wt 63.0 kg
[2022-02-05] MEDS ORDERED: diphenhydrAMINE 50 mg/ml inj IV ONE (03:50)
[2022-02-05] MEDS ORDERED: normal saline 1000ML IV soln IVB ONE ×2 (03:50→05:00)
[2022-02-05] MEDS ORDERED: metoclopramide 5 mg/ml inj IV ONE (04:05)
[2022-02-05] MEDS ORDERED: morphine 4 MG/ML inj SYRINge IV ONE ×2 (04:05→05:25)
[2022-02-05 04:26] LABS: BASOPHILS # (AUTO) 0.1 X10'3 (0-0.2); BASOPHILS % (AUTO) 0.9 % (0-1); EOSINOPHILS # (AUTO) 0.1 X10'3 (0-0.9); EOSINOPHILS % (AUTO) 1.3 % (0-6); HEMATOCRIT 39.8 % (35.0-45.0); HEMOGLOBIN 12.9 g/dl (12.0-16.0); LYMPHOCYTES # (AUTO) 1.1 X10'3 (1.1-4.8); LYMPHOCYTES % (AUTO) 14.8 % (21-51); MEAN CORPUSCULAR HEMOGLOBIN 28.6 PG (27.0-31.0); MEAN CORPUSCULAR HGB CONC 32.5 g/dL (33.0-36.5); MEAN PLATELET VOLUME 8.7 FL (7.4-10.4); MONOCYTES # (AUTO) 0.6 X10'3 (0-0.9); MONOCYTES % (AUTO) 7.8 % (2-12); NEUTROPHILS # (AUTO) 5.6 X10'3 (1.8-7.7); NEUTROPHILS % (AUTO) 75.2 % (42-75); PLATELET COUNT 298 X10'3 (140-440); RED BLOOD COUNT 4.52 X10'6 (4.20-5.60); WHITE BLOOD COUNT 7.5 X10'3 (4.5-11.0)
[2022-02-05 04:51] LABS: ALANINE AMINOTRANSFERASE 58 U/L (12-78); ALBUMIN 3.8 G/DL (3.4-5.0); ALBUMIN/GLOBULIN RATIO 1.1 (1.1-1.5); ALKALINE PHOSPHATASE 135 IU/L (46-116); ANION GAP 17 (8-16); ASPARTATE AMINO TRANSFERASE 44 U/L (10-37); BILIRUBIN,TOTAL 0.8 MG/DL (0.1-1.0); BLOOD UREA NITROGEN 13 MG/DL (7-18); BUN/CREATININE RATIO 9.6 (6.6-38.0); CALCIUM 9.3 MG/DL (8.5-10.1); CHLORIDE 98 MMOL/L (99-107); CREATININE 1.35 MG/DL (0.40-0.90); GLUCOSE 421 MG/DL (70-104); LIPASE 191 U/L (73-393); MAGNESIUM 1.5 MG/DL (1.5-2.4); POTASSIUM 4.1 MMOL/L (3.5-5.1); SODIUM 135 MMOL/L (135-145); TOTAL CARBON DIOXIDE 19.9 MMOL/L (24-32); TOTAL PROTEIN 7.2 G/DL (6.4-8.2); eGFR 45 ML/MIN
[2022-02-05] MEDS ORDERED: insulin regular, human 10 units/0.1 ml syringe IV ONE (05:00)
[2022-02-05 05:24] LABS: ABG BASE EXCESS -2.6 mmol/L (-2.0-2.0); ABG HCO3 19.9 mmol/L (22.0-26.0); ABG OXYGEN SATURATION 98.2 % (94-97); ABG PCO2 (T) 27.8 mmHg (32.0-45.0); ABG PO2 (T) 101.4 mmHg (75.0-100.0); ALLEN'S TEST POSITIVE; FCOHb 0.4 % (0.0-3.9); FMetHb 0.2 % (0.0-1.5); FO2Hb 97.6 % (94-97); PATIENT TEMPERATURE 36.6; TOTAL HEMOGLOBIN 13.3 G/dl (12.0-16.0)
[2022-02-05] MEDS ORDERED: iohexol 300mg/ml 100ml inj. ONE (05:46)
[2022-02-05] MEDS ORDERED: morphine 2 MG/ML inj. syringe IV PRN (06:35)
[2022-02-05] MEDS ORDERED: proCHLORperazine 10 MG/2 ml inj IV STA (06:43)
[2022-02-05 07:09] LABS: CLARITY,URINE CLOUDY (Clear); COLOR,URINE STRAW (Yellow); GLUCOSE, URINE >=1000 mg/dl (Neg); KETONES,URINE 40 mg/dl (Neg); LEUKOCYTE ESTERASE ,URINE TRACE (Neg); NITRITES, URINE NEGATIVE (Neg); OCCULT BLOOD,URINE MODERATE (Neg); PROTEIN,URINE 30 mg/dl (Neg); UROBILINOGEN,URINE 0.2 E.U/dL (0.2-1.0)
[2022-02-05 07:10] LABS: SQUAMOUS EPITHELIAL CELL,UR MANY /LPF (FEW); UA COLLECTION TYPE CLN CATCH MIDSTREAM
[2022-02-05 07:11] LABS: BACTERIA,URINE 2+ /HPF (Neg); RBC,URINE 0-2 /HPF (0-2); WBC,URINE 20-30 /HPF (0-4)
[2022-02-05 07:12] LABS: WBC CLUMPS,URINE FEW /HPF (NEGATIVE)
[2022-02-05] MEDS ORDERED: ondansetron/PF 4mg/2ml inj IV STA (08:38)
[2022-02-05] MEDS ORDERED: ondansetron 4mg rapidly disintigrating tab PO STA (08:58)
[2022-02-05 09:04] VITALS: BP 178/99
[2022-02-05] MEDS ORDERED: CIPR250T4 PO (09:51)
[2022-02-05] MEDS ORDERED: PROC25SU31 RC (09:51)
[2022-02-05] MEDS ORDERED: diazepam 5mg tablet PO ONE (09:55)
[2022-02-05] MEDS ORDERED: ciprofloxacin 250mg tablet PO ONE (09:55)
== END 2022-02-05 10:30 | disposition home or self-care (01) ==
LOC: ER 03:38
DX: K31.84 Gastroparesis (principal); N39.0 Urinary tract infection, site not specified; E86.0 Dehydration; E87.6 Hypokalemia; E11.9 Type 2 diabetes mellitus without complications; Z90.49 Acquired absence of other specified parts of digestive tract; Z98.890 Other specified postprocedural states; Z79.899 Other long term (current) drug therapy; Z88.0 Allergy status to penicillin; Z88.2 Allergy status to sulfonamides; Z88.1 Allergy status to other antibiotic agents; Z88.6 Allergy status to analgesic agent
CPT/HCPCS: 36415; 36600; 74177; 80053; 81001; 82803; 82948; 83690; 83735; 85018; 85025; 96361; 96374; 96375; 96376; 99285; J0780; J1200; J1815; J2270; J2765; J3490; J7030; Q9967

== ENCOUNTER 2023-10-14 16:36 | Emergency (ER) | payer OTHER, MEDICAID ==
[~2023-10-14] VITALS: Ht 157.5 cm; Wt 60.9 kg
[~2023-10-14 16:36] MED LIST changes: +ONDA-245 PO; -ONDA8TAB13 PO
[2023-10-14 16:38] VITALS: BP 146/80; PULSE 104; O2SAT 99
[2023-10-14 17:00] LABS: URINE HCG NEGATIVE (NEG)
[2023-10-14 17:01] LABS: BILIRUBIN,URINE NEGATIVE (Neg); CLARITY,URINE CLOUDY (Clear); GLUCOSE, URINE NEGATIVE (Neg); KETONES,URINE NEGATIVE (Neg); LEUKOCYTE ESTERASE ,URINE LARGE (Neg); NITRITES, URINE POSITIVE (Neg); OCCULT BLOOD,URINE MODERATE (Neg); PROTEIN,URINE 100 mg/dl (Neg); UROBILINOGEN,URINE 0.2 E.U/dL (0.2-1.0)
[2023-10-14 17:14] LABS: COLOR,URINE DARK YELLOW (Yellow); UA COLLECTION TYPE CLN CATCH MIDSTREAM
[2023-10-14 17:15] LABS: BACTERIA,URINE 2+ /HPF (Neg); MUCUS STRANDS FEW /LPF (Neg); RBC,URINE 20-50 /HPF (0-2); SQUAMOUS EPITHELIAL CELL,UR FEW /LPF (FEW); WBC,URINE TNTC /HPF (0-4)
[2023-10-14] MEDS ORDERED: CIPR750T14 PO (17:28)
[2023-10-14] MEDS ORDERED: PHEN-716 PO (17:28)
[2023-10-14 18:02] VITALS: RESP 16
[2023-10-14] MEDS: ketorolac trometh 30MG/ML vial 30 MG/ML VIAL IM ONE (18:02)
[2023-10-14] MEDS: CefTRIAXone 1000mg IM Kit (w/lidocaine diluent) IM ONE (18:02)
[2023-10-14 18:06] VITALS: TEMP 99.1
== END 2023-10-14 18:13 | disposition home or self-care (01) ==
LOC: ER 16:37
DX: N39.0 Urinary tract infection, site not specified (principal); E11.42 Type 2 diabetes mellitus with diabetic polyneuropathy; Z88.0 Allergy status to penicillin; Z88.2 Allergy status to sulfonamides; Z88.1 Allergy status to other antibiotic agents; Z88.8 Allergy status to other drugs, medicaments and biological substances; Z79.1 Long term (current) use of non-steroidal anti-inflammatories (NSAID); Z79.4 Long term (current) use of insulin; Z79.899 Other long term (current) drug therapy; Z79.891 Long term (current) use of opiate analgesic; Z90.49 Acquired absence of other specified parts of digestive tract; Z98.890 Other specified postprocedural states
CPT/HCPCS: 81001; 81025; 87088; 87186; 96372; 99284; J0696; J1885; 87077

== ENCOUNTER 2024-06-30 00:50 | Emergency (ER) | payer MEDICAID, OTHER ==
[~2024-06-30] VITALS: Ht 157.5 cm; Wt 61.4 kg
[2024-06-30 01:08] VITALS: BP 122/82; PULSE 85; RESP 16; TEMP 98.5; O2SAT 100
== END 2024-06-30 04:32 | disposition left against medical advice (07) ==
LOC: ER 00:50
DX: M25.512 Pain in left shoulder (principal); Z53.21 Procedure and treatment not carried out due to patient leaving prior to being seen by health care provider; Z88.1 Allergy status to other antibiotic agents; Z88.0 Allergy status to penicillin; Z88.5 Allergy status to narcotic agent; Z88.2 Allergy status to sulfonamides